=== PATIENT | male | born 1955 | race African-American/Black ===

== ENCOUNTER 2025-03-03 04:04 | Inpatient (IN) | payer MEDICARE, MEDICAID ==
[~2025-03-03] VITALS: Ht 172.7 cm; Wt 78.9 kg
[2025-03-03] VITALS (11 sets, daily range): BP systolic 105–129; BP diastolic 60–77; PULSE 76–86; RESP 12–97; TEMP 97.5–99; O2SAT 95–100
[2025-03-03] MEDS: FUROSEMIDE 40 MG/4 ML VIAL IV ONE ×2 (04:28→11:16)
[2025-03-03] MEDS: FUROSEMIDE 40 MG/4 ML VIAL ONE (04:28)
--- NOTE | 2025-03-03 04:31 | ED.PDOC ---
SOB-HPI HPI Comments 69-year-old male who came to ER due to shortness of breath. Patient transferred from [facility]. Patient history of lung cancer status post lobectomy 2018, status post chemotherapy currently on Krazati, has been having shortness of breath for the past 3 days progressively worsening, with the episodes of wheezing. Denies any fever or chills or acute chest pains. Patient was seen at [facility], diagnostics done, x-ray shows possible multifocal pneumonia with pleural effusion. Patient transferred here for continued management Chief Complaint: Shortness of Breath Time Seen by MD: 04:27 Reviewed notes: Nurses Notes, Monument Carver Notes Information Source: Patient Mode of Arrival: EMS Past Medical History PAST MEDICAL HISTORY: Cancer, High Lipids, HTN Past Medical History (Other): Lung Cancer Surgical History (Other): Lobectomy 2018, chemotherapy Family History Family History: Reviewed,noncontributory to illness Social History Smoker: Non-Smoker Alcohol: Denies ETOH Use Drugs: Denies Drug Use Lives In: Home Constitutional: denies: chills, diaphoresis, fatigue, fever, malaise, sweats, weakness, others EENTM: denies: blurred vision, double vision, ear bleeding, ear discharge, ear drainage, ear pain, ear ringing, eye pain, eye redness, hearing loss, mouth pain, mouth swelling, nasal discharge, nose bleeding, nose congestion, nose pain, photophobia, tearing, throat pain, throat swelling, voice changes, others Respiratory: reports: SOB at rest, shortness of breath, SOB with excertion, wheezing; denies: cough, hemoptysis, orthopnea, stridor, others Cardiovascular: denies: chest pain, dizzy spells, diaphoresis, Dyspnea on exertion, edema, irregular heart beat, left arm pain, lightheadedness, palpitations, PND, syncope, others Gastrointestinal: denies: abdomen distended, abdominal pain, blood streaked bowels, constipated, diarrhea, dysphagia, difficulty swallowing, hematemesis, melena, nausea, poor appetite, poor fluid intake, rectal bleeding, rectal pain, vomiting, others Genitourinary: denies: burning, dysuria, flank pain, frequency, hematuria, incontinence, penile discharge, penile sore, pain, testicle pain, testicle swelling, urgency, others Neurological: denies: dizziness, fainting, headache, left sided numbness, left sided weakness, numbness, paresthesia, pre-existing deficit, right sided numbness, right sided weakness, seizure, speech problems, tingling, tremors, weakness, others Musculoskeletal: denies: back pain, gout, joint pain, joint swelling, muscle pain, muscle stiffness, neck pain, others Integumetry: denies: bruises, change in color, change in hair/nails, dryness, laceration, lesions, lumps, rash, wounds, others Allergic/Immunocompromised: denies: Difficulty Healing, Frequent Infections, H jaylen, Itching, others Hematologic/Lymphatic: denies: anemia, blood clots, easy bleeding, easy bruising, swollen glands, others Endocrine: denies: excessive hunger, excessive sweating, excessive thirst, excessive urination, flushing, intolerance to cold, intolerance to heat, unexplained weight gain, unexplained weight loss, others Psychiatric: denies: anxiety, bipolar disorder, depression, hopeless, panic disorder, schizophrenia, sleepless, suicidal, others Physical Exam General Appearance: No Apparent Distress, Normal HEENT: Normal ENT Inspection, Pharynx Normal, TMs Normal Neck: Full Range of Motion, Non-Tender, Normal, Normal Inspection Respiratory: Chest Non-Tender, Lungs Clear, No Accessory Muscle Use, No Respiratory Distress, Normal Breath Sounds Cardiovascular: No Edema, No JVD, No Murmur, No Gallop, Normal Peripheral Pulses, Regular Rate/Rhythm Breast Exam: Deferred Gastrointestinal: No Organomegaly, Non Tender, No Pulsatile Mass, Normal Bowel Sounds, Soft Genitalia: Deferred Pelvic: Deferred Rectal: Deferred Extremities: No calf tenderness, Normal capillary refill, Normal inspection, Normal range of motion, Non-tender, No pedal edema Musculoskeletal : Apperance: Normal Neurologic: Alert, binder operator II-XII nml as Tested, No Motor Deficits, Normal Affect, Normal Mood, No Sensory Deficits Cerebellar Function: Normal Reflexes: Normal Skin: Dry, Normal Color, Warm Lymphatic: No Adenopathy Was a procedure done? Was a procedure done?: No Differential Dx Differential Diagnosis: CHF, COPD, Myocardial infarction, Respiratory Distress X-Ray, Labs, Meds, VS Vital Signs Date Time Temp Pulse Resp B/P (MAP) Pulse Ox O2 Delivery O2 Flow Rate FiO2 03/03/25 04:31 41 16 30.0 100 11/30/25 04:28 127/70 03/03/25 04:14 98.6 40 20 121/78 95 98.6 03/03/25 04:08 42 03/03/25 04:05 Non-Rebreather 15 N/A 03/03/25 04:05 97.8 42 18 127/70 (89) 96 97.8 Lab Test 03/03/25 04:48 Range/Units White Blood Count 14.0 H 4.4-10.8 10^3/uL Red Blood Count 2.84 L 4.5-5.90 10^6/uL Hemoglobin 8.9 L 13.5-17.5 g/dL Hematocrit 27.8 L 41.0-53.0 % Mean Corpuscular Volume 97.9 80.0-100.0 fL Mean Corpuscular Hemoglobin 31.4 28.0-32.0 pg Mean Corpuscular Hemoglobin Concent 32.1 32.0-36.0 g/dL Red Cell Distribution Width 14.6 H 11.8-14.3 % Platelet Count 135 L 140-450 10^3/uL Mean Platelet Volume 9.9 6.9-10.8 fL Neutrophils (%) (Auto) 89.7 H 37.0-80.0 % Lymphocytes (%) (Auto) 5.5 L 10.0-50.0 % Monocytes (%) (Auto) 4.3 0.0-12.0 % Eosinophils (%) (Auto) 0.0 0.0-7.0 % Basophils (%) (Auto) 0.5 0.0-2.0 % Neutrophils # (Auto) 12.6 H 1.6-8.6 10 ^3/uL Lymphocytes # (Auto) 0.8 0.4-5.4 10 ^3/uL Monocytes # (Auto) 0.6 0-1.3 10 ^3/uL Eosinophils # (Auto) 0 0-0.8 10 ^3/uL Basophils # (Auto) 0.1 0-0.2 10 ^3/uL Nucleated Red Blood Cells 0.2 % Prothrombin Time 12.8 H 9.3-11.8 sec Prothrombin Time INR 1.23 H 0.9-1.15 Activated Partial Thromboplast Time 26.0 24.5-34.5 SEC Sodium Level 138 136-145 mmol/L Potassium Level 5.6 *H 3.5-5.1 mmol/L Chloride Level 107 98-107 mmol/L Carbon Dioxide Level 18 L 20-31 mmol/L Anion Gap 13 5-15 Blood Urea Nitrogen 65 H 9-23 mg/dL Creatinine 7.28 H 0.700-1.30 mg/dL Glomerular Filtration Rate Calc 8 >90 mL/min BUN/Creatinine Ratio 8.9 L 10.0-20.0 Serum Glucose 134 H 74-106 mg/dL Calcium Level 9.8 8.7-10.4 mg/dL Total Bilirubin 0.5 0.2-1.0 mg/dL Aspartate Amino Transferase (AST) 96 H 13-40 U/L Alanine Aminotransferase (ALT) 125 H 7-40 U/L Alkaline Phosphatase 124 H 46-116 U/L Troponin I High Sensitivity 33 </=54 ng/L B-Type Natriuretic Peptide 2265.83 0-100 pg/mL Total Protein 7.3 5.7-8.2 g/dL Albumin 4.5 3.2-4.8 g/dL Current Medications Medications (Trade) Dose Ordered Sig/Peng Route Start Time Stop Time Status Last Admin Furosemide (Lasix Injection) 40 mg ONCE ONCE IV 03/03/25 04:30 03/03/25 04:31 DC 03/03/25 04:28 Time of 1ST Reevaluation: 04:24 Reevaluation 1ST: Unchanged Patient Education/Counseling: Diagnosis, Treatment Family Education/Counseling: No Family Present SEPSIS Sepsis Screen Date sepsis recognized/suspect: Mar 03, 2025 Time Sepsis recognized/suspect: 404 Recent Procedure: No On Antibiotic Therapy: No Respiratory Rate >20: No Heart Rate >90: No Temp<36 C (96.8 F) or >38.3 C: No SBP <90 or MAP <65 mmHG: No New Acute Mental Status Change: No Is the patient on CPAP, BIPAP,: No Physician Orders Oxygen By High-Flow (03/03/25 04:21) Chest Portable (03/03/25 04:22) Electrocardigram (03/03/25 04:22) Troponin-I Hs (03/03/25 05:22) Troponin-I Hs (03/03/25 07:22) Vital Signs Date Time Temp Pulse Resp B/P (MAP) Pulse Ox O2 Delivery O2 Flow Rate FiO2 03/03/25 04:31 41 16 30.0 100 03/03/25 04:28 127/70 03/03/25 04:14 98.6 40 20 121/78 95 98.6 03/03/25 04:08 42 03/03/25 04:05 Non-Rebreather 15 N/A 03/03/25 04:05 97.8 42 18 127/70 (89) 96 97.8 Laboratory Tests Test 03/03/25 04:48 White Blood Count 14.0 10^3/uL (4.4-10.8) H Medications Medications Dose Ordered Sig/Peng Route Start Time Stop Time Status Last Admin Dose Admin Furosemide 40 mg ONCE ONCE IV 03/03/25 04:30 03/03/25 04:31 DC 03/03/25 04:28 Departure 1 Departure Time of Disposition: 05:43 Impression: Primary Impression: Acute renal failure Additional Impressions: Hyperkalemia Fluid overload Disposition: ADMITTED INPATIENT Admit to: Tele Condition: Guarded Comments 69-year-old male transferred from outside hospital for respiratory failure with hypoxia. On lab review he has acute renal failure with BUN of 65 and creatinine of 7.28. He has hyperkalemia 5.6. His white blood cell count is bit elevated at 14. He is anemic likely anemia of chronic disease with H&H of 9 and 28. Patient was given Lasix and Lokelma and will need to be admitted for supportive care and further workup Critical Care Note Critical Care Time?: Yes (35 min-critical care time only) Stability Stability form required: No Heart Score Heart Score: Heart Score Response (Comments) Value History Moderate Suspicious 1 EKG Repolarization Disturb 1 Age >65 2 Risk Factors >3 or Hx ASHD 2 Troponin Normal limit 0 Total 6 I personally scribed for YONATHAN ANN MD ([email or web address]) on 03/03/25 at 04:31. Electronically submitted by Johnny Brower ([email or web address]). YONATHAN ANN MD Mar 03, 2025 04:31
[2025-03-03 05:01] LABS: Hematocrit 27.8 % (41.0-53.0); Hemoglobin 8.9 g/dL (13.5-17.5); Mean Corpuscular Hemoglobin 31.4 pg (28.0-32.0); Mean Corpuscular Volume 97.9 fL (80.0-100.0); Nucleated Red Blood Cells % 0.2 %
[2025-03-03 05:16] LABS: INR 1.23 (0.9-1.15); Partial Thromboplastin Time 26.0 SEC (24.5-34.5); Prothrombin Time 12.8 sec (9.3-11.8)
[2025-03-03 05:29] LABS: Albumin 4.5 g/dL (3.2-4.8); Anion Gap 13 (5-15); BUN/Creatinine Ratio 8.9 (10.0-20.0); Bilirubin, Total 0.5 mg/dL (0.2-1.0); Calcium 9.8 mg/dL (8.7-10.4); Chloride 107 mmol/L (98-107); Sodium 138 mmol/L (136-145); Total Protein 7.3 g/dL (5.7-8.2)
[2025-03-03 05:35] LABS: Alanine Aminotransferase 125 U/L (7-40); Alkaline Phosphatase 124 U/L (46-116); Blood Urea Nitrogen 65 mg/dL (9-23); Carbon Dioxide 18 mmol/L (20-31); Glucose 134 mg/dL (74-106)
--- NOTE | 2025-03-03 05:35 | DVH ---
CHEST RADIOGRAPH Indication: SOB Technique: Single frontal view of the chest was obtained Comparison: XR CHEST 1 VIEW on DOS: 03/02/25, XR CHEST 1 VIEW on DOS: 09/13/23, XR CHEST 1 VIEW on DOS: 03/07/23 IMPRESSION: Heart is enlarged. Bilateral airspace opacities in the left lung base, right middle and lower lung. Small right pleural effusion. No pneumothorax.
[2025-03-03 05:38] LABS: Potassium 5.6 mmol/L (3.5-5.1)
[2025-03-03] MEDS: SODIUM ZIRCONIUM CYCL 10 GM PAK PO ONE ×2 (06:19→19:35)
--- NOTE | 2025-03-03 07:07 | ECG ---
[facility] Test Date: 2025-03-03 Test Time: 04:08:18 Pat Name: DESTINI LINO Department: ED Room: 0249T Gender: M Millwright Helper: ABHIJEET : 1955 Requested By: YONATHAN ANN Order Number: [id number] Reading MD: Rosendo Prado Measurements Intervals Christiana Rate: 42 P: 0 NE: 0 QRS: 40 QRSD: 164 T: 43 QT: 455 QTc: 381 Interpretive Statements Junctional rhythm Nonspecific intraventricular conduction delay Electronically Signed On 03-05-2025 15:01:38 PST by Rosendo Prado Please click the below link to view image of tracing.
[2025-03-03] MEDS ORDERED: NITROGLYCERIN 0.4 MG SL TAB SL PRN (08:15)
[2025-03-03] MEDS ORDERED: ONDANSETRON HCL 4 MG/2 ML VIAL IV PRN (08:15)
[2025-03-03] MEDS ORDERED: VANCOMYCIN PER PHARMACY 0 MG IV SCH (08:15)
[2025-03-03] MEDS ORDERED: MORPHINE SULFATE INJ 2 MG/ml SYRG IV PRN (08:15)
[2025-03-03] MEDS: ALBUTEROL SULF 2.5 MG/0.5ML(0.5%) NEB SOLN NEB ONE (08:39)
[2025-03-03] MEDS: ALBUTEROL SULF 2.5 MG/0.5ML(0.5%) NEB SOLN ONE (08:53)
--- NOTE | 2025-03-03 09:16 | DVHHPRES ---
History of Present Illness Resident Creating Document: SCOTT MIRAMONTESLANDON RESIDENT History of Present Illness Patient is a 69-year-old male with who was transferred from [facility] with a chief complaint of worsening shortness of breath. Patient reported he started to have shortness of breath 3-4 days ago and was apparently well until that time. Patient has a significant medical history of lung cancer status post right lower lobectomy in 2018, on chemotherapy, ESRD status post chemotherapy was on dialysis until 6 months ago with the [facility] dialysis. Patient reported of started to have shortness of breath about 3-4 days ago, gradually worsening, orthopnea, associated with a cough and phlegm initially whitish then yellowish to dark brown/red. He denied any fevers, chills, headache, dysuria, chest pain. He denies any diagnosis of COPD, no oxygen use at home. While at [facility] patient underwent CT angio chest which did not show any evidence of pulmonary embolism, patchy airspace disease seen in the right middle lobe, left lower lobe, loculated small right pleural effusion. Patient was initially on nasal cannula with continued hypoxia following which he was put on non-rebreather mask and eventually on high-flow nasal cannula. Patient will be admitted to the hospital for further evaluation Medical history: lung cancer status post right lower lobectomy in 2018, on chemotherapy, ESRD status post chemotherapy was on dialysis until 6 months ago with the [facility] dialysis Surgical history: Right lower lobe lobectomy Social history: Patient lives with the his fiancee and denies any smoking, alcohol, drug use Home medications: Atenolol 25 mg daily, tamsulosin 0.4 mg daily, Krazati ( adagrasib ), lisinopril/hydrochlorothiazide, allopurinol, amlodipine, atorvastatin Review of Systems Review of Systems Patient seen and examined with the bedside currently on high-flow nasal cannula, no shortness of breath while on HLNC Denies any fever, chills, nausea, vomiting, headache, chest pain Patient is slightly confused but is A&O x3 Allergies: Coded Allergies: No Known Drug Allergy (Verified Allergy, Unknown, 03/03/25) Medications Current Medications Medications Dose Ordered Sig/Peng Route Start Time Stop Time Status Last Admin Dose Admin Nitroglycerin 0.4 mg Q5MINP PRN SL 03/03/25 08:15 Morphine Sulfate 2 mg Q30M PRN IV 03/03/25 08:15 Vancomycin HCl 0 ml @ 0 mls/hr PER PHARMACY IV 03/03/25 08:15 UNV Ceftriaxone Sodium 50 ml @ 100 mls/hr DAILY@09 IV 03/03/25 09:00 Azithromycin 250 ml @ 125 mls/hr DAILY IV 03/03/25 10:00 Ondansetron HCl 4 mg Q6HPRN PRN IV 03/03/25 08:15 Pantoprazole Sodium 40 mg DAILY IV 03/03/25 10:00 Exam Vital Signs Vital Signs Date Time Temp Pulse Resp B/P (MAP) Pulse Ox O2 Delivery O2 Flow Rate FiO2 03/03/25 08:40 14 100 Hi-Flow Heated NC+ 30 90 90 03/03/25 08:04 98.8 79 129/67 (87) 98.8 Exam Skin - Patients skin is warm and dry. HEENT - normocephalic, atraumatic, moist mucous membranes, no conjunctival pallor, no scleral icterus Neck - full ROM, no LAD, jugular venous pulsation elevated with a positive hepatojugular reflux Pulmonary - B/L decreased breath sounds in the right middle to lower with the inspiratory crackles in the bilateral bases, no wheezing cardiovascular - regular S1,S2 heard, no added sounds, no murmurs heard. capillary refill normal <3 secs. GI - soft, nontender abdomen. Bowel sounds normoactive Neurological - Patient is A/O X 3 . Bilateral upper extremity strength 5/5, bilateral lower extremity strength 5/5, no facial droop, normal speech, no tremor, no sensory deficiets. Labs/Xrays Labs Test 03/03/25 05:45 03/03/25 04:48 Range/Units Troponin I High Sensitivity 31 </=54 ng/L White Blood Count 14.0 H 4.4-10.8 10^3/uL Red Blood Count 2.84 L 4.5-5.90 10^6/uL Hemoglobin 8.9 L 13.5-17.5 g/dL Hematocrit 27.8 L 41.0-53.0 % Mean Corpuscular Volume 97.9 80.0-100.0 fL Mean Corpuscular Hemoglobin 31.4 28.0-32.0 pg Mean Corpuscular Hemoglobin Concent 32.1 32.0-36.0 g/dL Red Cell Distribution Width 14.6 H 11.8-14.3 % Platelet Count 135 L 140-450 10^3/uL Mean Platelet Volume 9.9 6.9-10.8 fL Neutrophils (%) (Auto) 89.7 H 37.0-80.0 % Lymphocytes (%) (Auto) 5.5 L 10.0-50.0 % Monocytes (%) (Auto) 4.3 0.0-12.0 % Eosinophils (%) (Auto) 0.0 0.0-7.0 % Basophils (%) (Auto) 0.5 0.0-2.0 % Neutrophils # (Auto) 12.6 H 1.6-8.6 10 ^3/uL Lymphocytes # (Auto) 0.8 0.4-5.4 10 ^3/uL Monocytes # (Auto) 0.6 0-1.3 10 ^3/uL Eosinophils # (Auto) 0 0-0.8 10 ^3/uL Basophils # (Auto) 0.1 0-0.2 10 ^3/uL Nucleated Red Blood Cells 0.2 % Prothrombin Time 12.8 H 9.3-11.8 sec Prothrombin Time INR 1.23 H 0.9-1.15 Activated Partial Thromboplast Time 26.0 24.5-34.5 SEC Sodium Level 138 136-145 mmol/L Potassium Level 5.6 *H 3.5-5.1 mmol/L Chloride Level 107 98-107 mmol/L Carbon Dioxide Level 18 L 20-31 mmol/L Anion Gap 13 5-15 Blood Urea Nitrogen 65 H 9-23 mg/dL Creatinine 7.28 H 0.700-1.30 mg/dL Glomerular Filtration Rate Calc 8 >90 mL/min BUN/Creatinine Ratio 8.9 L 10.0-20.0 Serum Glucose 134 H 74-106 mg/dL Calcium Level 9.8 8.7-10.4 mg/dL Total Bilirubin 0.5 0.2-1.0 mg/dL Aspartate Amino Transferase (AST) 96 H 13-40 U/L Alanine Aminotransferase (ALT) 125 H 7-40 U/L Alkaline Phosphatase 124 H 46-116 U/L B-Type Natriuretic Peptide 2265.83 0-100 pg/mL Total Protein 7.3 5.7-8.2 g/dL Albumin 4.5 3.2-4.8 g/dL SEPSIS Sepsis Screen Date sepsis recognized/suspect: Mar 03, 2025 Time Sepsis recognized/suspect: 422 Recent Procedure: No On Antibiotic Therapy: No Respiratory Rate >20: No Heart Rate >90: No Temp<36 C (96.8 F) or >38.3 C: No SBP <90 or MAP <65 mmHG: No New Acute Mental Status Change: No Is the patient on CPAP, BIPAP,: No Physician Orders Oxygen By High-Flow (03/03/25 04:21) Chest Portable (03/03/25 04:22) Troponin-I Hs (03/03/25 07:22) Admit (03/03/25 08:14) Nitroglycerin Sublingual (Ntrostat Subli (03/03/25 08:15) Morphine Sulfate Injection (03/03/25 08:15) Oxygen By Nasal Cannula (03/03/25 08:14) Stat Ekg For Chest Pain (03/03/25 08:14) Notify Md Of Changes From Base (03/03/25 08:14) Pneumatic Tube Repairer For 24 Hours (03/03/25 08:14) Emergency Dysrhythmia Protocol (03/03/25 08:14) Rhythm Strips Once Every Shift (03/03/25 08:14) Abg W/ Co-Ox (03/03/25 08:14) Rapid Influenza A&B (03/03/25 08:14) Covid19 Antigen Deborah (03/03/25 ) Mrsa Screen (03/03/25 08:14) Blood Culture (03/03/25 08:14) Respiratory Culture W/ Gs (03/03/25 08:14) Lactic Acid W/ Reflex Order (03/03/25 08:14) Vancomycin Per Pharmacy (03/03/25 08:15) Ceftriaxone 1gm/50ml (Rocephin) (03/03/25 09:00) Azithromycin 500mg/250ml (Zithromax 500m (03/03/25 10:00) Urinalysis (03/03/25 08:14) Ondansetron Hcl (Zofran) (03/03/25 08:15) *Dr. Saba Ramsey -Da Mary (03/03/25 08:14) * Swallow Request (03/03/25 08:14) Furosemide Injection (Lasix Injection) (03/03/25 11:00) Pantoprazole (Protonix) (03/03/25 10:00) Complete Blood Count (03/04/25 04:00) Comprehensive Metabolic Panel (03/04/25 04:00) Thyroid Stimulating Hormone (03/03/25 08:14) Vancomycin 1.75gm/350ml (03/03/25 08:45) Vital Signs Date Time Temp Pulse Resp B/P (MAP) Pulse Ox O2 Delivery O2 Flow Rate FiO2 03/03/25 08:40 14 100 Hi-Flow Heated NC+ 30 90 90 03/03/25 08:04 98.8 79 16 129/67 (87) 100 98.8 03/03/25 07:10 76 14 100 Hi-Flow Heated NC+ 30 32 32 03/03/25 07:01 83 21 99 30.0 90 03/03/25 06:45 99 Nasal Cannula 30.0 03/03/25 06:45 99 Hi-Flow Heated NC+ 30 90 90 03/03/25 06:00 75 19 129/66 (87) 100 03/03/25 04:31 41 16 30.0 100 03/03/25 04:28 127/70 03/03/25 04:14 98.6 40 20 121/78 95 98.6 03/03/25 04:08 42 03/03/25 04:05 Non-Rebreather 15 N/A 03/03/25 04:05 97.8 42 18 127/70 (89) 96 97.8 Laboratory Tests Test 03/03/25 04:48 White Blood Count 14.0 10^3/uL (4.4-10.8) H Medications Medications Dose Ordered Sig/Peng Route Start Time Stop Time Status Last Admin Dose Admin Albuterol 20 mg ONCE ONCE NEB 03/03/25 08:15 03/03/25 08:34 DC 03/03/25 08:39 20 MG Furosemide 40 mg ONCE ONCE IV 03/03/25 04:30 03/03/25 04:31 DC 03/03/25 04:28 40 MG Zirconium Oxide 10 gm ONCE ONCE PO 03/03/25 06:15 03/03/25 06:16 DC 03/03/25 06:19 10 GM Assessment/Plan Assessment/Plan Acute hypoxic respiratory failure likely due to pneumonia Multifocal pneumonia likely due to Gram +/-bacteria Sepsis likely due to pneumonia ?Hemoptysis h/o lung cancer status post right lower lobectomy Pulmonary edema likely from acute renal failure PE ruled out ( CT angio at [facility] negative for PE) - IV antibiotics vancomycin plus ceftriaxone plus azithromycin - judicious use of IV fluids since the patient has a acute renal failure - duo nebs q.8 hours with the Mucomyst - sputum cultures pending - blood cultures pending Acute renal failure RODY on CKD likely due to VMN h/o ESRD ( s/p chemo) on dialysis until 6 months ago Hyperkalemia - nephrology consult - hyperkalemia protocol given, monitor electrolytes and kidney function - IV diuretics - strict I and O PUD prophylaxis: Protonix DVT prophylaxis: Held as the patient reported of hemoptysis, low hemoglobin Goals of care discussed with the patient and his mumtaz Mix over phone for over 19 minutes. Full code Critical care time spent: 51 minutes Plan discussed with Dr. Babcock Plan discussed with: Patient, Other (RN) My Orders Orders - CURLY MIRAMONTES RESIDENT Procedure Category Date Status Time Admit ADMIT 03/03/25 Transmitted 08:14 Nitroglycerin PHA 03/03/25 In Process Sublingual (Ntrostat 08:15 Morphine Sulfate PHA 03/03/25 In Process Injection 08:15 Oxygen By Nasal RT 03/03/25 Transmitted Cannula 08:14 Stat Ekg For Chest [facility] 03/03/25 In Process Pain 08:14 Notify Of Changes [facility] 03/03/25 In Process From Base 08:14 Pneumatic Tube Repairer For [facility] 03/03/25 In Process 24 Hours 08:14 Emergency Dysrhythmia [facility] 03/03/25 In Process Protocol 08:14 Rhythm Strips Once [facility] 03/03/25 In Process Every Shift 08:14 Abg W/ Co-Ox RT 03/03/25 Logged 08:14 Rapid Influenza A&B LAB 03/03/25 Logged 08:14 Covid19 Antigen Deborah LAB 03/03/25 Logged Mrsa Screen JONO 03/03/25 Logged 08:14 Blood Culture JONO 03/03/25 Logged 08:14 Respiratory Culture JONO 03/03/25 Logged W/ Gs 08:14 Lactic Acid W/ Reflex LAB 03/03/25 Logged Order 08:14 Vancomycin Per PHA 03/03/25 Pending Pharmacy 08:15 Ceftriaxone 1gm/50ml PHA 03/03/25 In Process (Rocephin) 09:00 Azithromycin PHA 03/03/25 In Process 500mg/250ml 10:00 Urinalysis LAB 03/03/25 Logged 08:14 Ondansetron Hcl PHA 03/03/25 In Process (Zofran) 08:15 *Dr. Saba Ramsey -Da CONS 03/03/25 Transmitted Mary 08:14 * Swallow Request ST 03/03/25 Transmitted 08:14 Furosemide Injection PHA 03/03/25 In Process (Lasix Injection) 11:00 Pantoprazole PHA 03/03/25 In Process (Protonix) 10:00 Complete Blood Count LAB 03/04/25 Verified 04:00 Comprehensive LAB 03/04/25 Verified Metabolic Panel 04:00 Thyroid Stimulating LAB 03/03/25 In Process Hormone 08:14 Vancomycin PHA 03/03/25 In Process 1.75gm/350ml 08:45 Date of Service: Mar 03, 2025 Billing Provider: ALBERTA BABCOCK MD Common Visit Codes: [id number] CARE 30-74 MIN CURLY MIRAMONTES RESIDENT Mar 03, 2025 09:16 ALBERTA BABCOCK MD Mar 03, 2025 23:15
[2025-03-03] MEDS ORDERED: DEXTROSE (50%) 50ML SYRG IV PRN (09:30)
[2025-03-03] MEDS: InsuLIN REG 1unit/0.01ml Soln (100units/ml) IV ONE (09:44)
[2025-03-03] MEDS: VANCOMYCIN 1.75GM/350ML 350 ML IV ONE (09:46)
[2025-03-03] MEDS: DEXTROSE (50%) 50ML SYRG IV ONE (09:46)
[2025-03-03 09:55] LABS: Base Excess -5.8 mmol/L (-2.0-3.0)
[2025-03-03] MEDS: PANTOPRAZOLE 40 MG/10 ML VIAL INJ IV SCH (10:05)
[2025-03-03 11:03] LABS: COVID19 ANTIGEN SOFIA FIA NEGATIVE (NEGATIVE)
[2025-03-03] MEDS ORDERED: ACCU-CHEK COMFORT CURVE STRIP VI SCH (12:00)
--- NOTE | 2025-03-03 13:48 | DVHSR ---
APPROVED REPORT EXAM: Two-dimensional and M-mode echocardiogram with Doppler and color Doppler. Blood Pressure: 129/67 mmHg INDICATION SOB H/O Lung CA S/P Chemo CKD/ESRD RISK FACTORS Height: 5' 8", Weight: 178 DIMENSIONS LVDd 4.9 (3.8-5.7cm) LA (2D) 4.5 (1.9-4.0cm) Aortic Root 3.2 (2.0-3.7cm) LVDs 3.5 (2.5-4.0cm) LA (MM) (1.9-4.0cm) Aortic Cusp Exc 2.2 (1.5-2.0cm) EF (%) 55.1 (55-70%) Rt. Atrium 4.5 (1.9-4.0cm) Asc. Aorta cm IVSd 1.0 (0.7-1.1cm) RV (D) (1.8-2.4cm) PWd 1.2 (0.7-1.1cm) Mitral Valve Mitral Mitral Stenosis E wave 1.00m/s MV Mean GR. mmHg A wave 0.90m/s MV Peak GR. mmHg E/A ratio 1.1 2D MVA cm2 Aortic Valve Aortic Valve Aortic Stenosis V1 1.10m/s AO Mean GR. 6mmHg V2 1.80m/s AO Peak GR. 14mmHg LVOT Diameter 2.4 (1.8-2.4cm) Doppler ADRINAE 2.76cm2 Pulmonic Valve V2 0.80m/s Tricuspid Valve TR Velocity 3.20m/s RVSP 50mmHg Conclusion lvef 65% mild LVH no severe valve abnomrality noted
--- NOTE | 2025-03-03 13:51 | DVHINCON2 ---
Date of service: Mar 03, [address] Harris. Reason for Consultation Acute kidney injury History of Present Illness 69-year-old patient with significant history of lung cancer status post chemotherapy currently on adagrasib, previous RODY dialysis dependent recovery about six months ago at [facility], hypertension, gout, BPH who is accompanied by his here at bedside. The patient states that for the last four days he has had gradual and worsening shortness of breath on exertion associated with orthopnea PND but no leg swelling no difficulty with urination, no fevers no chills, no new medications, and the cough is productive of mostly whitish sputum with slight yellow tinge to. He presented 1st to [facility] with a CT angio was done showing negative for pulmonary embolism, patchy infiltrate multifocal with a loculated small right-sided pleural effusion. Patient has been hypoxic on non-rebreather 1st currently on high-flow nasal cannula and he was initially hyperkalemic of 5.6 which responded well to Lokelma now 5.1. Laboratory data revealed hyperkalemia 5.6 now 5.1. Chest x-ray showed pulmonary edema Past Medical History RODY dialysis dependent Hypertension Lung cancer Past Surgical History Lobectomy in 2018 Allergies: Coded Allergies: No Known Drug Allergy (Verified Allergy, Unknown, 03/03/25) Current Medications Current Medications Medications (Trade) Dose Ordered Sig/Peng Route PRN Reason Start Time Stop Time Status Last Admin Nitroglycerin (Ntrostat Sublingual) 0.4 mg Q5MINP PRN SL FOR CHEST PAIN 03/03/25 08:15 Morphine Sulfate 2 mg Q30M PRN IV FOR CHEST PAIN 03/03/25 08:15 Vancomycin HCl 0 ml @ 0 mls/hr PER PHARMACY IV 03/03/25 08:15 Ceftriaxone Sodium 50 ml @ 100 mls/hr DAILY@09 IV 03/03/25 09:00 03/03/25 09:41 Azithromycin 250 ml @ 125 mls/hr DAILY IV 03/03/25 10:00 Ondansetron HCl (Zofran) 4 mg Q6HPRN PRN IV NAUSEA / VOMITING 03/03/25 08:15 Pantoprazole Sodium (Protonix) 40 mg DAILY IV 03/03/25 10:00 03/03/25 10:05 Albuterol (Ventolin Medneb) 2.5 mg Q8HR NEB 03/03/25 14:00 Ipratropium [place] (Atrovent Medneb) 0.5 mg Q8HR NEB 03/03/25 14:00 Acetylcysteine (Mucomyst Inhalation 20%) 200 mg Q8HR NEB 03/03/25 14:00 Diagnostic Test (Pha) (Accu-Chek Comfort Curve T) 1 strip Q6HR 03/03/25 12:00 03/03/25 09:41 DC Dextrose 50 ml UD PRN IV Blood Sugar LESS THAN 60 03/03/25 09:30 03/03/25 09:41 DC Furosemide (Lasix Injection) 80 mg BIDD IV 03/03/25 18:00 UNV Social History He denies smoking alcohol or drug abuse Review of Systems HEENT: Oral mucosa dry Neck no JVD Cardiovascular: Denies for chest pain denies orthopnea or PND Respiratory: Positive for cough or shortness of breath Gastrointestinal: Denies for nausea vomiting Musculoskeletal: Denies myalgias Neurological: Denies focal weakness Dermatological: Denies any rash The rest of the review of systems were reviewed pertinent positives and pertinent negatives are as per HPI up to 12 points review of systems H&P Exam Vital Signs/I&O Vital Sign Date Time Temp Pulse Resp B/P (MAP) Pulse Ox O2 Delivery O2 Flow Rate FiO2 03/03/25 11:22 80 16 120/60 (80) 100 03/03/25 08:40 Hi-Flow Heated NC+ 30 90 90 03/03/25 08:04 98.8 98.8 Physical Exam HEENT: No evidence of JVD, no oral ulcers. Pulmonary: Crackles on auscultation bilaterally Cardiovascular S1-S2, no S3 or S4 Abdomen: Bowel sounds positive, soft no rebound tenderness Skin: No rash Neurological: Alert, oriented, no focal weakness Labs/Diagnostic Data Labs/Diagnostic Data Laboratory Tests Test 03/03/25 11:29 03/03/25 09:09 03/03/25 08:56 03/03/25 08:49 Range/Units Potassium Level 5.1 3.5-5.1 mmol/L Blood Gas Specimen Type Arterial Blood Gas Sample Site Right radial Blood Gas Patient Temperature 37.0 Arterial Blood Date Drawn [id number] Arterial Blood pH 7.379 7.350-7.450 Arterial Blood Partial Pressure CO2 31.8 L 35.0-48.0 mmHg Arterial Blood Partial Pressure O2 184.1 H 83.0-108.0 mmHg Arterial Blood HCO3 18.3 L 21.0-28.0 mmol/L Arterial Blood Oxygen Saturation 99.0 H 94.0-98.0 % Arterial Blood Base Excess -5.8 L -2.0-3.0 mmol/L Arterial Blood Oxyhemoglobin 98.3 H 94.0-98.0 % Arterial Blood Carboxyhemoglobin 0.2 L 0.5-1.5 % Arterial Blood Methemoglobin 0.5 0.0-1.5 % Arterial Blood Deoxyhemoglobin 1.0 0.0-5.0 % Mahesh Test Modified Blood Gas Total Hemoglobin 11.70 L 13.5-17.5 g/dL Blood Gas Liter Flow 30.00 Blood Gas Modality High flow FiO2 % 90.0 POC Glucose 169 H 70-106 mg/dl Troponin I High Sensitivity 31 </=54 ng/L Test 03/03/25 08:44 03/03/25 05:45 03/03/25 04:48 03/03/25 04:13 Range/Units Lactic Acid Level 1.0 0.4-2.0 mmol/L Troponin I High Sensitivity 31 33 </=54 ng/L Thyroid Stimulating Hormone (TSH) 1.81 0.55-4.78 uIU/mL White Blood Count 14.0 H 4.4-10.8 10^3/uL Red Blood Count 2.84 L 4.5-5.90 10^6/uL Hemoglobin 8.9 L 13.5-17.5 g/dL Hematocrit 27.8 L 41.0-53.0 % Mean Corpuscular Volume 97.9 80.0-100.0 fL Mean Corpuscular Hemoglobin 31.4 28.0-32.0 pg Mean Corpuscular Hemoglobin Concent 32.1 32.0-36.0 g/dL Red Cell Distribution Width 14.6 H 11.8-14.3 % Platelet Count 135 L 140-450 10^3/uL Mean Platelet Volume 9.9 6.9-10.8 fL Neutrophils (%) (Auto) 89.7 H 37.0-80.0 % Lymphocytes (%) (Auto) 5.5 L 10.0-50.0 % Monocytes (%) (Auto) 4.3 0.0-12.0 % Eosinophils (%) (Auto) 0.0 0.0-7.0 % Basophils (%) (Auto) 0.5 0.0-2.0 % Neutrophils # (Auto) 12.6 H 1.6-8.6 10 ^3/uL Lymphocytes # (Auto) 0.8 0.4-5.4 10 ^3/uL Monocytes # (Auto) 0.6 0-1.3 10 ^3/uL Eosinophils # (Auto) 0 0-0.8 10 ^3/uL Basophils # (Auto) 0.1 0-0.2 10 ^3/uL Nucleated Red Blood Cells 0.2 % Prothrombin Time 12.8 H 9.3-11.8 sec Prothrombin Time INR 1.23 H 0.9-1.15 Activated Partial Thromboplast Time 26.0 24.5-34.5 SEC Sodium Level 138 136-145 mmol/L Potassium Level 5.6 *H 3.5-5.1 mmol/L Chloride Level 107 98-107 mmol/L Carbon Dioxide Level 18 L 20-31 mmol/L Anion Gap 13 5-15 Blood Urea Nitrogen 65 H 9-23 mg/dL Creatinine 7.28 H 0.700-1.30 mg/dL Glomerular Filtration Rate Calc 8 >90 mL/min BUN/Creatinine Ratio 8.9 L 10.0-20.0 Serum Glucose 134 H 74-106 mg/dL Calcium Level 9.8 8.7-10.4 mg/dL Total Bilirubin 0.5 0.2-1.0 mg/dL Aspartate Amino Transferase (AST) 96 H 13-40 U/L Alanine Aminotransferase (ALT) 125 H 7-40 U/L Alkaline Phosphatase 124 H 46-116 U/L B-Type Natriuretic Peptide 2265.83 0-100 pg/mL Total Protein 7.3 5.7-8.2 g/dL Albumin 4.5 3.2-4.8 g/dL Reticulocyte Count (auto) 2.18 H 0.5-1.5 % Test 03/03/25 00:00 Range/Units Influenza Type A Antigen Negative Negative Influenza Type B Antigen Negative Negative SARS-CoV-2 Antigen (Rapid) Negative NEGATIVE Chest x-ray with pulmonary edema Assessment Assessment: 1. Acute kidney injury 2. Hyperkalemia 3. Pulmonary edema 4. Pneumonia 5. Acidemia 6. Lung cancer 7. Hypertension Plan: Continue Lokelsc, we will give extra dose now Lasix IV 80 mg b.i.d. HD after dialysis catheter placed Tunneled catheter placement, high risk case manager to arrange for chair time Monitor urinary output Antibiotics as per primary team Sodium bicarb p.o. Renal ultrasound to be obtained Plan of care from Nephrology perspective discussed with the patient and who agrees. Plan discussed with: Patient, Spouse SIMIN MICHELLE MD Mar 03, 2025 13:51
[2025-03-03] MEDS: IPRATROPIUM BROM 0.5 MG/2.5ML INH SOL NEB SCH (14:14)
[2025-03-03] MEDS: ALBUTEROL SULF 2.5 MG/0.5ML(0.5%) NEB SOLN NEB SCH (14:14)
[2025-03-03] MEDS: ACETYLCYSTEINE 20%(200MG/ML) SOL 4ML NEB SCH (14:14)
[2025-03-03] MEDS: AZITHROMYCIN 500MG/250ML 250 ML IV SCH (14:16)
--- NOTE | 2025-03-03 14:42 | DVH ---
INDICATION: RODY TECHNIQUE: Multiple real-time sonographic images of the kidneys and bladder were obtained. COMPARISON: None FINDINGS: The right kidney measures 9.7 cm in length, which is normal in size. There is normal echogenicity of the right kidney. No hydronephrosis. The left kidney measures 8.5 cm in length, which is normal in size. There is normal echogenicity of the left kidney. No hydronephrosis. No large intraluminal masses are seen in the bladder. Prior to voiding the bladder volume measures volume 1306 cc. Wall of the bladder measures 2.1 mm Postvoid bladder volume not received Prostate measures 5.93 by 3.04 x 5.23 cm. Prostatic volume is 49.41 mL. IMPRESSION: 1. Normal sonographic appearance of the kidneys. No hydronephrosis. 2. Postvoid bladder volume not received 3. Prostate volume 49.41 mL
[2025-03-03 18:00] LABS: Urine Protein, UAD Negative (Negative)
[2025-03-03] MEDS: FUROSEMIDE 100 MG/10ML VIAL IV SCH (18:00)
[2025-03-04] VITALS (21 sets, daily range): BP systolic 108–137; BP diastolic 64–83; PULSE 51–86; RESP 9–96; TEMP 98–99; O2SAT 94–100
[2025-03-04] MEDS: ONDANSETRON HCL 4 MG/2 ML VIAL IV PRN (02:35)
[2025-03-04 05:27] LABS: Hemoglobin 8.3 g/dL (13.5-17.5)
[2025-03-04 05:29] LABS: Hematocrit 24.9 % (41.0-53.0); Mean Corpuscular Hemoglobin 32.4 pg (28.0-32.0); Mean Corpuscular Volume 97.6 fL (80.0-100.0); Nucleated Red Blood Cells % 0.3 %
[2025-03-04 05:49] LABS: Albumin 4.0 g/dL (3.2-4.8); Alkaline Phosphatase 109 U/L (46-116); Anion Gap 14 (5-15); BUN/Creatinine Ratio 10.9 (10.0-20.0); Bilirubin, Total 0.5 mg/dL (0.2-1.0); Calcium 9.4 mg/dL (8.7-10.4); Chloride 103 mmol/L (98-107); Sodium 137 mmol/L (136-145); Total Protein 6.6 g/dL (5.7-8.2)
[2025-03-04 05:51] LABS: Alanine Aminotransferase 107 U/L (7-40); Carbon Dioxide 20 mmol/L (20-31); Glucose 151 mg/dL (74-106); Potassium 5.3 mmol/L (3.5-5.1)
[2025-03-04 05:52] LABS: Blood Urea Nitrogen 80 mg/dL (9-23)
--- NOTE | 2025-03-04 08:30 | DVH ---
EXAM: XY CHEST XRAY 1 VIEW HISTORY: SOB COMPARISON: XY CHEST PORTABLE on DOS: 03/03/25, XR CHEST 1 VIEW on DOS: 03/02/25, XR CHEST 1 VIEW on DOS: 09/13/23, XR CHEST 1 VIEW on DOS: 03/07/23, XR CHEST 1 VIEW on DOS: 03/07/23. For reasons unknown, CT scan of the chest dated 03/03/2025 was not made available on the PACS system for viewing. TECHNIQUE: Portable AP view of the chest was performed. FINDINGS: There are patchy opacities in the bilateral lung bases, improved on both sides compared with chest x-ray performed on 03/03/2025. There may be a small right pleural effusion. No pneumothorax. The heart is not enlarged. There are Multiple old right rib fractures. IMPRESSION: Improved bibasilar pneumonia.
[2025-03-04] MEDS: HEPARIN SODIUM (PORCINE) 5000 UNITS/ML 1ML VIAL ONE (11:40)
[2025-03-04] MEDS: BUPIVACAINE HCL 0.25% P/F 10 ML VIAL ONE (11:40)
[2025-03-04 11:50] LABS: Hepatitis B Surface Antigen Negative (Negative)
[2025-03-04] MEDS: HEPARIN 1,000 UNITS/ml 1ML VIAL ONE (11:54)
[2025-03-04 12:18] LABS: Hepatitis C Antibody Negative (Negative)
[2025-03-04] MEDS ORDERED: GLYCOPYRROLATE 0.2 MG/ML 1ML VIAL ONE (12:22)
[2025-03-04] MEDS ORDERED: KETAMINE 50mg/ML 1ml syringe ONE (12:22)
[2025-03-04] MEDS ORDERED: PROPOFOL 10 MG/ML 20 ML IV ONE (12:22)
[2025-03-04] MEDS ORDERED: MIDAZOLAM HCL 2MG/2ML 2ml VIAL (1mg/ml) ONE (12:22)
[2025-03-04] MEDS ORDERED: ONDANSETRON HCL 4 MG/2 ML VIAL ONE (12:22)
--- NOTE | 2025-03-04 12:30 | DVHINCON2 ---
Date of service: Mar 04, 2025 Family History: Patient reports no known family medical history. Allergies: Coded Allergies: No Known Drug Allergy (Verified Allergy, Unknown, 03/03/25) Current Medications Current Medications Medications (Trade) Dose Ordered Sig/Peng Route PRN Reason Start Time Stop Time Status Last Admin Albuterol (Ventolin Medneb) 2.5 mg Q8HR NEB 03/03/25 14:00 03/04/25 05:54 Ipratropium [place] (Atrovent Medneb) 0.5 mg Q8HR NEB 03/03/25 14:00 03/04/25 05:55 Acetylcysteine (Mucomyst Inhalation 20%) 200 mg Q8HR NEB 03/03/25 14:00 03/04/25 05:55 Furosemide (Lasix Injection) 80 mg BIDD IV 03/03/25 18:00 03/04/25 07:37 Ondansetron HCl (Zofran) 4 mg Q6HPRN PRN IV NAUSEA / VOMITING 03/03/25 19:00 03/04/25 08:37 Vital Signs Vital Signs Date Time Temp Pulse Resp B/P (MAP) Pulse Ox O2 Delivery O2 Flow Rate FiO2 03/04/25 12:00 99.0 78 12 114/64 (81) 94 99.0 03/04/25 05:56 Oxymizer 4.0 03/04/25 05:56 82 82 Labs/Diagnostic Data Labs Test 03/04/25 04:57 03/03/25 17:45 03/03/25 09:09 03/03/25 08:56 Range/Units White Blood Count 12.1 H 4.4-10.8 10^3/uL Red Blood Count 2.55 L 4.5-5.90 10^6/uL Hemoglobin 8.3 L 13.5-17.5 g/dL Hematocrit 24.9 #L 41.0-53.0 % Mean Corpuscular Volume 97.6 80.0-100.0 fL Mean Corpuscular Hemoglobin 32.4 H 28.0-32.0 pg Mean Corpuscular Hemoglobin Concent 33.2 32.0-36.0 g/dL Red Cell Distribution Width 14.4 H 11.8-14.3 % Platelet Count 130 L 140-450 10^3/uL Mean Platelet Volume 9.9 6.9-10.8 fL Neutrophils (%) (Auto) 91.5 H 37.0-80.0 % Lymphocytes (%) (Auto) 2.1 L 10.0-50.0 % Monocytes (%) (Auto) 6.3 0.0-12.0 % Eosinophils (%) (Auto) 0.0 0.0-7.0 % Basophils (%) (Auto) 0.1 0.0-2.0 % Neutrophils # (Auto) 11.1 H 1.6-8.6 10 ^3/uL Lymphocytes # (Auto) 0.3 L 0.4-5.4 10 ^3/uL Monocytes # (Auto) 0.8 0-1.3 10 ^3/uL Eosinophils # (Auto) 0 0-0.8 10 ^3/uL Basophils # (Auto) 0 0-0.2 10 ^3/uL Nucleated Red Blood Cells 0.3 % Sodium Level 137 136-145 mmol/L Potassium Level 5.3 H 3.5-5.1 mmol/L Chloride Level 103 98-107 mmol/L Carbon Dioxide Level 20 20-31 mmol/L Anion Gap 14 5-15 Blood Urea Nitrogen 80 #*H 9-23 mg/dL Creatinine 7.36 H 0.700-1.30 mg/dL Glomerular Filtration Rate Calc 8 >90 mL/min BUN/Creatinine Ratio 10.9 10.0-20.0 Serum Glucose 151 H 74-106 mg/dL Calcium Level 9.4 8.7-10.4 mg/dL Total Bilirubin 0.5 0.2-1.0 mg/dL Aspartate Amino Transferase (AST) 50 H 13-40 U/L Alanine Aminotransferase (ALT) 107 H 7-40 U/L Alkaline Phosphatase 109 46-116 U/L Total Protein 6.6 5.7-8.2 g/dL Albumin 4.0 3.2-4.8 g/dL Random Vancomycin Level 22.4 H 5-10 ug/mL Urine Color Light-yellow Yellow Urine Clarity Clear Clear Urine pH 5.0 5.0-9.0 Urine Specific [place] 1.014 1.001-1.035 Urine Protein Negative Negative Urine Ketones Negative Negative Urine Blood Negative Negative /uL Urine Nitrite Negative Negative Urine Bilirubin Negative Negative Urine Urobilinogen Normal Negative mg/dL Urine Leukocyte Esterase Negative Negative /uL Urine RBC <1 0 - 3 /hpf Urine Microscopic WBC < 1 0-3 /HPF Urine Squamous Epithelial Cells None seen <5 /hpf Urine Bacteria None seen None Seen /hpf Urine Glucose Normal Normal mg/dL Blood Gas Specimen Type Arterial Blood Gas Sample Site Right radial Blood Gas Patient Temperature 37.0 Arterial Blood Date Drawn [id number] Arterial Blood pH 7.379 7.350-7.450 Arterial Blood Partial Pressure CO2 31.8 L 35.0-48.0 mmHg Arterial Blood Partial Pressure O2 184.1 H 83.0-108.0 mmHg Arterial Blood HCO3 18.3 L 21.0-28.0 mmol/L Arterial Blood Oxygen Saturation 99.0 H 94.0-98.0 % Arterial Blood Base Excess -5.8 L -2.0-3.0 mmol/L Arterial Blood Oxyhemoglobin 98.3 H 94.0-98.0 % Arterial Blood Carboxyhemoglobin 0.2 L 0.5-1.5 % Arterial Blood Methemoglobin 0.5 0.0-1.5 % Arterial Blood Deoxyhemoglobin 1.0 0.0-5.0 % Mahesh Test Modified Blood Gas Total Hemoglobin 11.70 L 13.5-17.5 g/dL Blood Gas Liter Flow 30.00 Blood Gas Modality High flow FiO2 % 90.0 POC Glucose 169 H 70-106 mg/dl Test 03/03/25 08:49 03/03/25 08:44 03/03/25 05:45 03/03/25 04:48 Range/Units Troponin I High Sensitivity 31 </=54 ng/L Hepatitis B Surface Antigen Negative Negative Hepatitis B Surface Antibody Negative Negative Hepatitis C Antibody Negative Negative Lactic Acid Level 1.0 0.4-2.0 mmol/L Thyroid Stimulating Hormone (TSH) 1.81 0.55-4.78 uIU/mL Prothrombin Time 12.8 H 9.3-11.8 sec Prothrombin Time INR 1.23 H 0.9-1.15 Activated Partial Thromboplast Time 26.0 24.5-34.5 SEC B-Type Natriuretic Peptide 2265.83 0-100 pg/mL Test 03/03/25 04:13 03/03/25 00:00 Range/Units Reticulocyte Count (auto) 2.18 H 0.5-1.5 % Influenza Type A Antigen Negative Negative Influenza Type B Antigen Negative Negative SARS-CoV-2 Antigen (Rapid) Negative NEGATIVE Microbiology Date/Time Source Procedure Growth Status 03/03/25 08:49 Blood Blood Culture - Preliminary NO GROWTH AFTER 24 HOURS OF INCUBATION. Resulted Assessment [id number] C/O SHORTNESS OF BREATH ESRD ON DIALYSIS SEC TO RENAL FAILURE FOLLOWING CHEMOTHERAPY FOR LUNG CA AFEBRILE VSS ABD SOFT REQUIRING DIALYSIS PROCEED WITH TUNNELLED/TEMPORARY CATH PLACEMENT Plan discussed with: Patient BOBBY HANCOCK MD Mar 04, 2025 12:30
--- NOTE | 2025-03-04 12:47 | DVHINCON2 ---
DATE OF CONSULTATION: 03/04/2025 HISTORY OF PRESENT ILLNESS: This patient is a 69-year-old from [facility] with a chief complaint of worsening shortness of breath and he had this 3-4 days before that and then he was okay and then he had a significant deterioration in his breathing as well. He has a significant medical history of lung cancer. He is status post right lower lobectomy in 2018 and was on chemotherapy. Following that, he developed end-stage renal disease and was on dialysis. He had a right tunnel catheter placed on the right side and then it was removed because his kidney function improved and now his kidney function is not doing well, so I was asked to see him in regard to placement of a dialysis catheter. At this point, no nausea or vomiting. No constipation or diarrhea. No hematemesis or melena. No bleeding per rectum. PAST MEDICAL HISTORY: As indicated above. PHYSICAL EXAMINATION: VITAL SIGNS: Afebrile. Stable signs. HEENT: With no evidence of pallor, cyanosis, or jaundice. NECK: Supple and nontender, with no thyromegaly or lymphadenopathy. CHEST AND LUNGS: Clear. HEART: Within normal limits. ABDOMEN: Soft. NEUROLOGIC: Not assessed. CLINICAL IMPRESSION: End-stage renal disease. PLAN: The plan would be to place a permanent or tunnel catheter and attempt to place it on the left side and if not successful, then go to the right side of the subclavian vein and then there is a possibility of a temporary catheter replacement as well in case the permanent catheter placement is not successful. Benefits and risks have been discussed and a consent obtained. MD GABRIELA Rowe/MARU TID: [id number] RECEIPT: [id number] cc:
[2025-03-04] MEDS ORDERED: MEPERIDINE HCL (25 MG/ML) 1ML VIAL ONE (13:03)
--- NOTE | 2025-03-04 13:27 | DVHOP2 ---
Operative Report [id number] ESRD PLACEMENT OF TUNNELLED DIALYSIS CATH MAC EBL 5 CC NO DRAINS NO COMPLICATIONS STABLE RECOVERY ROOM CXR IN REC ROOM BOBBY HANCOCK MD Mar 04, 2025 13:27
[2025-03-04] MEDS ORDERED: VANCOMYCIN 500mg/100mL 100 ML IV ONE (14:00)
--- NOTE | 2025-03-04 14:11 | DVH ---
XY C ARM FLUOROSCOPY UP TO 60MIN, XY CHEST XRAY 1 VIEW, HISTORY: DIALYSIS CATHETER PLACEMENT TECHNICAL DATA: 2 intraoperative fluoroscopic spot images were obtained . COMPARISON: None FINDINGS/IMPRESSION: C-arm fluoroscopic images were obtained for anatomic localization. The images are of low resolution but demonstrate instrumentation over the chest . Total fluoroscopy time was 9.2 seconds. Please see the operative report for further details.
--- NOTE | 2025-03-04 15:15 | DVHOP ---
DATE OF SURGERY: 03/04/2025 PREOPERATIVE DIAGNOSIS: End-stage renal disease. POSTOPERATIVE DIAGNOSIS: End-stage renal disease. PROCEDURE: Left subclavian tunneled catheter placement. SURGEON: Ismael Stuart MD QUALITY PROCESS AUDITOR: None. ANESTHESIA: Local with IV sedation. ESTIMATED BLOOD LOSS: 5 mL. DRAINS: No drains were used. DESCRIPTION OF PROCEDURE: The patient was prepped and draped in the usual sterile fashion in the Trendelenburg position. Lidocaine was infiltrated in the vicinity in the left infraclavicular location and a percutaneous incision was applied to enter into the subclavian vein. The syringe was detached. The guide was advanced through the needle and into position and checked by fluoroscopy in good position. The needle was withdrawn. The tract was dilated. Introducer sheath assembly was applied over the guidewire and then the tunneled dialysis catheter was then subcutaneously brought up against the introducer sheath assembly from a separate incision that was placed more inferiorly after the lidocaine was infiltrated in the vicinity as well. The cuff was located within the incision and then the trocar along with the needle was removed. The sheath was left in place and the tip of the dialysis catheter was advanced through the sheath, advanced into position into good location and the sheath was withdrawn. With the cuff in good position, the catheter without any kinking and in the right upper atrium and confirmed by fluoroscopy with no complications, both the ports were flushed with normal saline and heparinized saline, good flows were obtained. There were no complications. The wounds were brought together using 3-0 Monocryl suture for the infraclavicular incision as well as the exit site incision. Then, the flange of the catheter was secured in place using a silk suture on both the sites and a Biopatch was applied for the exit site and surgical glue was applied for the infraclavicular incision. Steri-Strips were applied. The patient tolerated the procedure well. He was taken back to the recovery room in stable condition. MD GABRIELA Rowe/PAULO/ALIA TID: [id number] RECEIPT: [id number] cc: Gracie Smith, Dr. Lul Dr.
--- NOTE | 2025-03-04 15:40 | DVHPNRES ---
Progress Note Date Seen: Mar 04, 2025 Resident Creating Document: CURLY MIRAMONTES RESIDENT Medical Necessity Reason Pt with a Central, PICC or Fol: No Subjective Review of Systems Patient seen and examined with the bedside Oxygen requirements decreased and patient was on nasal cannula 2 L/min saturating more than 94%. WBC count decreasing Patient tolerating diet well No acute complaints Objective vital signs Vital Sign Date Time Temp Pulse Resp B/P (MAP) Pulse Ox O2 Delivery O2 Flow Rate FiO2 03/04/25 14:08 52 12 97 03/04/25 13:59 Oxymizer 2.0 03/04/25 13:59 82 82 03/04/25 13:41 109/59 (76) 03/04/25 13:26 98.6 98.6 Total Intake and Output 03/03/25 03/03/25 03/04/25 15:00 23:00 07:00 Intake Total 475 ml 425 ml 400 ml Output Total 500 ml 2050 ml Balance 475 ml -75 ml -1650 ml medications Current Medications Medications Dose Ordered Sig/Peng Route Start Time Stop Time Status Last Admin Dose Admin Nitroglycerin 0.4 mg Q5MINP PRN SL 03/03/25 08:15 Morphine Sulfate 2 mg Q30M PRN IV 03/03/25 08:15 Vancomycin HCl 0 ml @ 0 mls/hr PER PHARMACY IV 03/03/25 08:15 Ceftriaxone Sodium 50 ml @ 100 mls/hr DAILY@09 IV 03/03/25 09:00 03/04/25 09:12 100 MLS/HR Azithromycin 250 ml @ 125 mls/hr DAILY IV 03/03/25 10:00 03/04/25 10:57 125 MLS/HR Pantoprazole Sodium 40 mg DAILY IV 03/03/25 10:00 03/04/25 09:12 40 MG Albuterol 2.5 mg Q8HR NEB 03/03/25 14:00 03/04/25 13:58 2.5 MG Ipratropium [place] 0.5 mg Q8HR NEB 03/03/25 14:00 03/04/25 13:58 0.5 MG Acetylcysteine 200 mg Q8HR NEB 03/03/25 14:00 03/04/25 13:59 200 MG Furosemide 80 mg BIDD IV 03/03/25 18:00 03/04/25 07:37 80 MG Ondansetron HCl 4 mg Q6HPRN PRN IV 03/03/25 19:00 03/04/25 08:37 4 MG Examination Skin - Patients skin is warm and dry. HEENT - normocephalic, atraumatic, moist mucous membranes, no conjunctival pallor, no scleral icterus Neck - full ROM, no LAD, jugular venous pulsation elevated with a positive hepatojugular reflux Pulmonary - B/L breath sounds improved with the decreased rales cardiovascular - regular S1,S2 heard, no added sounds, no murmurs heard. capillary refill normal <3 secs. GI - soft, nontender abdomen. Bowel sounds normoactive Neurological - Patient is A/O X 3 . Bilateral upper extremity strength 5/5, bilateral lower extremity strength 5/5, no facial droop, normal speech, no tremor, no sensory deficiets. laboratory and microbiology Laboratory Tests 03/04/25 04:57 Test 03/04/25 04:57 Range/Units Serum Glucose 151 H 74-106 mg/dL Microbiology Date/Time Source Procedure Growth Status 03/03/25 08:49 Blood Blood Culture - Preliminary NO GROWTH AFTER 24 HOURS OF INCUBATION. Resulted 03/03/25 00:00 Nose MRSA Screen - Final Complete Problem List/Assessment/Plan Problem List/Assessment/Plan Acute hypoxic respiratory failure likely due to pneumonia Multifocal pneumonia likely due to Gram +/-bacteria Sepsis likely due to pneumonia ?Hemoptysis h/o lung cancer status post right lower lobectomy Pulmonary edema likely from acute renal failure PE ruled out ( CT angio at [facility] negative for PE) - IV antibiotics vancomycin plus ceftriaxone plus azithromycin - judicious use of IV fluids since the patient has a acute renal failure - duo nebs q.8 hours with the Mucomyst - sputum cultures pending - blood cultures showed no growth Acute renal failure RODY on CKD likely due to VMN ESRD Hyperkalemia - nephrology consult - IV diuretics - strict I and O - patient underwent tunneled dialysis catheter insertion, dialysis today PUD prophylaxis: Protonix DVT prophylaxis: Started on heparin b.i.d. Goals of care discussed with the patient for over 18 minutes. Full code Critical care time spent: 37 minutes Plan discussed with Dr. Jenkins Plan discussed with: Patient, Spouse (Maria Del Rosario), Other (RN) My Orders My Orders Orders - CURLY MIRAMONTES Procedure Category Date Status Time Ondansetron Hcl PHA 03/03/25 In Process (Zofran) 19:00 Chest Xray 1 View XY 03/04/25 Resulted 07:00 Transfer Orders XFER 03/04/25 Transmitted 07:56 Vancomycin,Random LAB 03/05/25 Verified 04:00 Creatinine LAB 03/05/25 Verified 04:00 Insertion Of Venous XY 03/04/25 Taken Cath 13:37 Date of Service: Mar 04, 2025 Billing Provider: ALBERTA JENKINS MD Common Visit Codes: [id number] INP/OBS CARE(HIGH) CURLY MIRAMONTES RESIDENT Mar 04, 2025 15:39 ALBERTA JENKINS MD Mar 04, 2025 22:53
--- NOTE | 2025-03-04 17:58 | DVHPN2 ---
Progress Note - Dictate Date Seen: Mar 04, 2025 Medical Necessity Reason Pt with a Central, PICC or Fol: No Subjective No new complaints vital signs Vital Sign Date Time Temp Pulse Resp B/P (MAP) Pulse Ox O2 Delivery O2 Flow Rate FiO2 03/04/25 17:40 98.0 78 13 137/68 (91) 98 98.0 03/04/25 13:59 Oxymizer 2.0 03/04/25 13:59 82 82 Total Intake and Output 03/03/25 03/03/25 03/04/25 15:00 23:00 07:00 Intake Total 475 ml 425 ml 400 ml Output Total 500 ml 2050 ml Balance 475 ml -75 ml -1650 ml medications Current Medications Medications Dose Ordered Sig/Peng Route Start Time Stop Time Status Last Admin Dose Admin Nitroglycerin 0.4 mg Q5MINP PRN SL 03/03/25 08:15 Morphine Sulfate 2 mg Q30M PRN IV 03/03/25 08:15 Vancomycin HCl 0 ml @ 0 mls/hr PER PHARMACY IV 03/03/25 08:15 Ceftriaxone Sodium 50 ml @ 100 mls/hr DAILY@09 IV 03/03/25 09:00 03/04/25 09:12 100 MLS/HR Azithromycin 250 ml @ 125 mls/hr DAILY IV 03/03/25 10:00 03/04/25 10:57 125 MLS/HR Pantoprazole Sodium 40 mg DAILY IV 03/03/25 10:00 03/04/25 09:12 40 MG Albuterol 2.5 mg Q8HR NEB 03/03/25 14:00 03/04/25 13:58 2.5 MG Ipratropium [place] 0.5 mg Q8HR NEB 03/03/25 14:00 03/04/25 13:58 0.5 MG Acetylcysteine 200 mg Q8HR NEB 03/03/25 14:00 03/04/25 13:59 200 MG Furosemide 80 mg BIDD IV 03/03/25 18:00 03/04/25 17:39 80 MG Ondansetron HCl 4 mg Q6HPRN PRN IV 03/03/25 19:00 03/04/25 08:37 4 MG Heparin Sodium (Porcine) 5,000 units Q12HR SC 03/04/25 22:00 objective HEENT: No evidence of JVD, no oral ulcers. Pulmonary: Crackles on auscultation bilaterally Cardiovascular S1-S2, no S3 or S4 Abdomen: Bowel sounds positive, soft no rebound tenderness Skin: No rash Neurological: Alert, oriented, no focal weakness laboratory and microbiology Laboratory Tests 03/04/25 04:57 Test 03/04/25 04:57 Range/Units Serum Glucose 151 H 74-106 mg/dL Problem List Assessment: 1. Acute kidney injury, severe ATN, started HD 2. Hyperkalemia improved after HD 3. Pulmonary edema 4. Pneumonia 5. Acidemia 6. Lung cancer 7. Hypertension Plan: Continue HD on MWF Lasix IV 80 mg b.i.d. Tunneled catheter placement, case maker to arrange for chair time Monitor urinary output Antibiotics as per primary team Sodium bicarb p.o. Plan discussed with: Other MEGAN SIMON MD Mar 04, 2025 17:58
[2025-03-04] MEDS: SODIUM CHL 0.9% 1000 ML BAG XX ONE (20:47)
[2025-03-04] MEDS: ALBUMIN 25% 100 ML IV ONE ×2 (21:08→21:37)
[2025-03-05] VITALS (17 sets, daily range): BP systolic 111–147; BP diastolic 59–84; PULSE 61–90; RESP 9–95; TEMP 97.8–99.7; O2SAT 91–100
[2025-03-05] MEDS: VANCOMYCIN 500mg/100mL 100 ML IV ONE (00:03)
[2025-03-05] MEDS: EPOETIN ALFA-EPBX 4,000 UNIT/ML VIAL SC ONE (00:28)
[2025-03-05] MEDS: HEPARIN SODIUM (PORCINE) 5000 UNITS/ML 1ML VIAL SC SCH (00:40)
[2025-03-05 06:03] LABS: Hematocrit 25.5 % (41.0-53.0); Hemoglobin 8.6 g/dL (13.5-17.5); Mean Corpuscular Hemoglobin 32.7 pg (28.0-32.0); Mean Corpuscular Volume 97.2 fL (80.0-100.0); Nucleated Red Blood Cells % 0.4 %
[2025-03-05 06:12] LABS: Anion Gap 13 (5-15); Carbon Dioxide 27 mmol/L (20-31); Chloride 101 mmol/L (98-107); Potassium 4.3 mmol/L (3.5-5.1); Sodium 141 mmol/L (136-145)
[2025-03-05 06:14] LABS: Calcium 9.4 mg/dL (8.7-10.4)
[2025-03-05 06:18] LABS: BUN/Creatinine Ratio 10.0 (10.0-20.0)
[2025-03-05 06:22] LABS: Blood Urea Nitrogen 54 mg/dL (9-23); Glucose 109 mg/dL (74-106)
--- NOTE | 2025-03-05 10:55 | MEDREC ---
[facility] ASP Intervention Section I [facility] ASP Intervention: Deescalate AB based on CS (PLEASE CONSIDER D/C VANCOMYCIN - NARES SCREENING FOR MRSA HAS A HIGH SPECIFICITY AND NEGATIVE PREDICTIVE VALUE FOR RULING OUT MRSA PNEUMONIA) RADHA TOSCANO PHARMACIST Mar 05, 2025 10:55
--- NOTE | 2025-03-05 12:15 | DVHPN2 ---
Progress Note - Dictate Date Seen: Mar 05, 2025 Has the PT tested + for MRSA If YES, has PT been informed?: No Medical Necessity Reason Pt with a Central, PICC or Fol: No Subjective No new complaints vital signs Vital Sign Date Time Temp Pulse Resp B/P (MAP) Pulse Ox O2 Delivery O2 Flow Rate FiO2 03/05/25 08:00 73 95 95 Nasal Cannula* 1 24 03/05/25 05:48 127/76 03/05/25 05:35 98.9 98.9 Total Intake and Output 03/04/25 03/04/25 03/05/25 15:00 23:00 07:00 Intake Total 310 ml 100 ml 500 ml Output Total 800 ml 1350 ml Balance 310 ml -700 ml -850 ml medications Current Medications Medications Dose Ordered Sig/Peng Route Start Time Stop Time Status Last Admin Dose Admin Nitroglycerin 0.4 mg Q5MINP PRN SL 03/03/25 08:15 Morphine Sulfate 2 mg Q30M PRN IV 03/03/25 08:15 Vancomycin HCl 0 ml @ 0 mls/hr PER PHARMACY IV 03/03/25 08:15 Ceftriaxone Sodium 50 ml @ 100 mls/hr DAILY@09 IV 03/03/25 09:00 03/05/25 09:59 100 MLS/HR Azithromycin 250 ml @ 125 mls/hr DAILY IV 03/03/25 10:00 03/05/25 10:00 125 MLS/HR Pantoprazole Sodium 40 mg DAILY IV 03/03/25 10:00 03/05/25 09:59 40 MG Albuterol 2.5 mg Q8HR NEB 03/03/25 14:00 03/05/25 06:44 2.5 MG Ipratropium [place] 0.5 mg Q8HR NEB 03/03/25 14:00 03/05/25 06:43 0.5 MG Acetylcysteine 200 mg Q8HR NEB 03/03/25 14:00 03/05/25 06:47 200 MG Furosemide 80 mg BIDD IV 03/03/25 18:00 03/05/25 05:48 80 MG Ondansetron HCl 4 mg Q6HPRN PRN IV 03/03/25 19:00 03/04/25 08:37 4 MG Heparin Sodium (Porcine) 5,000 units Q12HR SC 03/04/25 22:00 03/05/25 09:59 5,000 UNITS objective HEENT: No evidence of JVD, no oral ulcers. Pulmonary: Crackles on auscultation bilaterally Cardiovascular S1-S2, no S3 or S4 Abdomen: Bowel sounds positive, soft no rebound tenderness Skin: No rash Neurological: Alert, oriented, no focal weakness laboratory and microbiology Laboratory Tests 03/05/25 05:14 Test 03/05/25 05:14 Range/Units Serum Glucose 109 H 74-106 mg/dL Problem List Assessment: 1. Acute kidney injury, severe ATN, started HD 2. Hyperkalemia improved after HD 3. Pulmonary edema 4. Pneumonia 5. Acidemia 6. Lung cancer 7. Hypertension Plan: Continue HD on MWF Lasix IV 80 mg b.i.d. Tunneled catheter placement, residential case manager to arrange for chair time Monitor urinary output Antibiotics as per primary team Sodium bicarb p.o. Plan discussed with: Patient MEGAN SIMON MD Mar 05, 2025 12:15
--- NOTE | 2025-03-05 17:59 | DVHPNRES ---
Progress Note Date Seen: Mar 05, 2025 Resident Creating Document: CAROLYN CHRISTIANSON RESIDENT Has the PT tested + for MRSA If YES, has PT been informed?: No Medical Necessity Reason Pt with a Central, PICC or Fol: No Subjective Review of Systems Patient is a 69-year-old male with who was transferred from [facility] with a chief complaint of worsening shortness of breath. Patient reported he started to have shortness of breath 3-4 days ago and was apparently well until that time. Patient has a significant medical history of lung cancer status post right lower lobectomy in 2018, on chemotherapy, ESRD status post chemotherapy was on dialysis until 6 months ago with the [facility] dialysis. Patient reported of started to have shortness of breath about 3-4 days ago, gradually worsening, orthopnea, associated with a cough and phlegm initially whitish then yellowish to dark brown/red. He denied any fevers, chills, headache, dysuria, chest pain. He denies any diagnosis of COPD, no oxygen use at home. While at [facility] patient underwent CT angio chest which did not show any evidence of pulmonary embolism, patchy airspace disease seen in the right middle lobe, left lower lobe, loculated small right pleural effusion. Patient was initially on nasal cannula with continued hypoxia following which he was put on non-rebreather mask and eventually on high-flow nasal cannula. Patient will be admitted to the hospital for further evaluation Medical history: lung cancer status post right lower lobectomy in 2018, on chemotherapy, ESRD status post chemotherapy was on dialysis until 6 months ago with the [facility] dialysis Surgical history: Right lower lobe lobectomy Social history: Patient lives with the his fiancee and denies any smoking, alcohol, drug use Home medications: Atenolol 25 mg daily, tamsulosin 0.4 mg daily, Krazati ( adagrasib ), lisinopril/hydrochlorothiazide, allopurinol, amlodipine, atorvastatin 03/05/2025: Patient seen at bedside. Patient feels much better is only on 1 L oxygen. Discharge tomorrow after chair time arranged. Objective vital signs Vital Sign Date Time Temp Pulse Resp B/P (MAP) Pulse Ox O2 Delivery O2 Flow Rate FiO2 03/05/25 17:09 127/84 03/05/25 13:00 97.8 61 14 96 97.8 03/05/25 08:00 Nasal Cannula* 1 24 Total Intake and Output 03/04/25 03/04/25 03/05/25 15:00 23:00 07:00 Intake Total 310 ml 100 ml 500 ml Output Total 800 ml 1350 ml Balance 310 ml -700 ml -850 ml medications Current Medications Medications Dose Ordered Sig/Peng Route Start Time Stop Time Status Last Admin Dose Admin Nitroglycerin 0.4 mg Q5MINP PRN SL 03/03/25 08:15 Morphine Sulfate 2 mg Q30M PRN IV 03/03/25 08:15 Vancomycin HCl 0 ml @ 0 mls/hr PER PHARMACY IV 03/03/25 08:15 Ceftriaxone Sodium 50 ml @ 100 mls/hr DAILY@09 IV 03/03/25 09:00 03/05/25 09:59 100 MLS/HR Albuterol 2.5 mg Q8HR [facility] 03/03/25 14:00 03/05/25 06:44 2.5 MG Ipratropium [place] 0.5 mg Q8HR [facility] 03/03/25 14:00 03/05/25 06:43 0.5 MG Acetylcysteine 200 mg Q8HR NEB 03/03/25 14:00 03/05/25 06:47 200 MG Furosemide 80 mg BIDD IV 03/03/25 18:00 03/05/25 17:09 80 MG Ondansetron HCl 4 mg Q6HPRN PRN IV 03/03/25 19:00 03/04/25 08:37 4 MG Heparin Sodium (Porcine) 5,000 units Q12HR SC 03/04/25 22:00 03/05/25 09:59 5,000 UNITS Pantoprazole Sodium 40 mg DAILY@0600 PO 03/06/25 06:00 Azithromycin 500 mg DAILY PO 03/06/25 10:00 03/07/25 10:00 Examination General: Patient alert and oriented in person, place and time. Patient following commands. HEENT: Normocephalic, atraumatic, moist mucous membranes Respiratory/pulmonary: Clear lungs bilaterally, vesicular murmurs present in almost all lung faustin, no associated crackles or wheezes. Cardiovascular: Normal heart sounds S1 and S2 with no associated murmurs Abdomen: Abdomen nondistended, there is no pain to palpation in any of the abdominal quadrants, no palpable masses. Extremities: There is no peripheral edema present at the lower extremities. Peripheral Pulses: 3+ Radial (R). 3+ Radial (L). 3+ Dorsalis pedis (R). 3+ Dorsalis pedis(L) Skin: No rashes or pruritus, there is no sacral edema present at this time. Neurological: Intact cranial nerves with no focal neurologic deficits laboratory and microbiology Laboratory Tests 03/05/25 05:14 Test 03/05/25 05:14 Range/Units Serum Glucose 109 H 74-106 mg/dL Microbiology Date/Time Source Procedure Growth Status 03/04/25 09:10 Sputum Gram Stain - Final Resulted 03/04/25 09:10 Sputum Respiratory Culture - Preliminary No growth Resulted 03/03/25 08:49 Blood Blood Culture - Preliminary NO GROWTH AFTER 48 HOURS OF INCUBATION. Resulted 03/03/25 00:00 Nose MRSA Screen - Final Complete Problem List/Assessment/Plan Problem List/Assessment/Plan Acute hypoxic respiratory failure likely due to pneumonia Multifocal pneumonia likely due to Gram +/-bacteria Sepsis likely due to pneumonia ?Hemoptysis h/o lung cancer status post right lower lobectomy Pulmonary edema likely from acute renal failure PE ruled out ( CT angio at [facility] negative for PE) - IV antibiotics vancomycin plus ceftriaxone plus azithromycin - judicious use of IV fluids since the patient has a acute renal failure - duo nebs q.8 hours with the Mucomyst - sputum cultures pending - blood cultures showed no growth Acute renal failure RODY on CKD likely due to VMN ESRD Hyperkalemia - nephrology consult - IV diuretics - strict I and O - patient underwent tunneled dialysis catheter insertion, dialysis today PUD prophylaxis: Protonix DVT prophylaxis: Started on heparin b.i.d. Goals of care addressed with the patient for more than 27 minutes: Full code status Case discussed with Dr. Ellison , patient and nurse Plan discussed with: Patient Visit Coding STANDARD RES Billing Provider: CAROLYN CHRISTIANSON Date of Service if different f: Mar 05, 2025 Common Visit Codes: [id number] INP/OBS CARE(HIGH) CAROLYN CHRISTIANSON Mar 05, 2025 17:59
[2025-03-06] VITALS (11 sets, daily range): BP systolic 106–144; BP diastolic 68–77; PULSE 61–79; RESP 17–100; TEMP 97.6–98.4; O2SAT 95–100
[2025-03-06] MEDS: PANTOPRAZOLE 40 MG TAB PO SCH (05:26)
[2025-03-06 06:33] LABS: Potassium 3.8 mmol/L (3.5-5.1); Sodium 137 mmol/L (136-145)
[2025-03-06 06:34] LABS: Anion Gap 13 (5-15); Carbon Dioxide 27 mmol/L (20-31); Hematocrit 28.2 % (41.0-53.0); Hemoglobin 9.6 g/dL (13.5-17.5); Mean Corpuscular Hemoglobin 32.5 pg (28.0-32.0); Mean Corpuscular Volume 95.9 fL (80.0-100.0); Nucleated Red Blood Cells % 0.2 %
[2025-03-06 06:35] LABS: Calcium 9.3 mg/dL (8.7-10.4)
[2025-03-06 06:39] LABS: Glucose 102 mg/dL (74-106)
[2025-03-06 06:40] LABS: BUN/Creatinine Ratio 11.4 (10.0-20.0)
[2025-03-06 06:42] LABS: Blood Urea Nitrogen 63 mg/dL (9-23); Chloride 97 mmol/L (98-107)
[2025-03-06] MEDS: AZITHROMYCIN 250 MG TAB PO SCH (11:10)
--- NOTE | 2025-03-06 12:13 | DVHPN2 ---
Progress Note - Dictate Date Seen: Mar 06, 2025 Has the PT tested + for MRSA If YES, has PT been informed?: No Medical Necessity Reason Pt with a Central, PICC or Fol: No Subjective No new complaints vital signs Vital Sign Date Time Temp Pulse Resp B/P (MAP) Pulse Ox O2 Delivery O2 Flow Rate FiO2 03/06/25 08:43 97.6 72 19 111/68 (82) 100 97.6 03/06/25 06:13 Nasal Cannula 1.0 03/06/25 06:13 24 Total Intake and Output 03/05/25 03/05/25 03/06/25 14:59 22:59 06:59 Intake Total 1120 ml 600 ml Output Total 800 ml Balance 320 ml 600 ml medications Current Medications Medications Dose Ordered Sig/Peng Route Start Time Stop Time Status Last Admin Dose Admin Nitroglycerin 0.4 mg Q5MINP PRN SL 03/03/25 08:15 Morphine Sulfate 2 mg Q30M PRN IV 03/03/25 08:15 Vancomycin HCl 0 ml @ 0 mls/hr PER PHARMACY IV 03/03/25 08:15 Ceftriaxone Sodium 50 ml @ 100 mls/hr DAILY@09 IV 03/03/25 09:00 03/06/25 09:16 100 MLS/HR Albuterol 2.5 mg Q8HR NEB 03/03/25 14:00 03/06/25 06:13 2.5 MG Ipratropium [place] 0.5 mg Q8HR NEB 03/03/25 14:00 03/06/25 06:12 0.5 MG Acetylcysteine 200 mg Q8HR NEB 03/03/25 14:00 03/06/25 06:13 200 MG Furosemide 80 mg BIDD IV 03/03/25 18:00 03/06/25 05:27 80 MG Ondansetron HCl 4 mg Q6HPRN PRN IV 03/03/25 19:00 03/04/25 08:37 4 MG Heparin Sodium (Porcine) 5,000 units Q12HR SC 03/04/25 22:00 03/05/25 21:48 5,000 UNITS Pantoprazole Sodium 40 mg DAILY@0600 PO 03/06/25 06:00 03/06/25 05:26 40 MG Azithromycin 500 mg DAILY PO 03/06/25 10:00 03/07/25 10:00 03/06/25 11:10 500 MG objective HEENT: No evidence of JVD, no oral ulcers. Pulmonary: Crackles on auscultation bilaterally Cardiovascular S1-S2, no S3 or S4 Abdomen: Bowel sounds positive, soft no rebound tenderness Skin: No rash Neurological: Alert, oriented, no focal weakness laboratory and microbiology Laboratory Tests 03/06/25 05:52 Test 03/06/25 05:52 Range/Units Serum Glucose 102 74-106 mg/dL Problem List Assessment: 1. Acute kidney injury, severe ATN, started HD 2. Hyperkalemia improved after HD 3. Pulmonary edema 4. Pneumonia 5. Acidemia 6. Lung cancer 7. Hypertension Plan: Continue HD on MWF, patient has cheir time scheduled to continue HD at [facility] Tunneled catheter placed Monitor urinary output Antibiotics as per primary team Sodium bicarb p.o. DC home after HD today Plan discussed with: Patient MEGAN SIMON MD Mar 06, 2025 12:13
[2025-03-06] MEDS ORDERED: SODIUM CHL 0.9% 1000 ML BAG XX ONE (12:30)
--- NOTE | 2025-03-06 14:29 | DVHPN2 ---
Progress Note Date Seen: Mar 06, 2025 Has the PT tested + for MRSA If YES, has PT been informed?: No Medical Necessity Reason Pt with a Central, PICC or Fol: No Objective vital signs Vital Sign Date Time Temp Pulse Resp B/P (MAP) Pulse Ox O2 Delivery O2 Flow Rate FiO2 03/06/25 13:52 72 18 100 03/06/25 13:42 Room Air* 0 21 03/06/25 12:32 98.4 123/75 (91) 98.4 Total Intake and Output 03/05/25 03/05/25 03/06/25 15:00 23:00 07:00 Intake Total 1120 ml 600 ml Output Total 800 ml Balance 320 ml 600 ml medications Current Medications Medications Dose Ordered Sig/Peng Route Start Time Stop Time Status Last Admin Dose Admin Nitroglycerin 0.4 mg Q5MINP PRN SL 03/03/25 08:15 Morphine Sulfate 2 mg Q30M PRN IV 03/03/25 08:15 Vancomycin HCl 0 ml @ 0 mls/hr PER PHARMACY IV 03/03/25 08:15 Ceftriaxone Sodium 50 ml @ 100 mls/hr DAILY@09 IV 03/03/25 09:00 03/06/25 09:16 100 MLS/HR Albuterol 2.5 mg Q8HR NEB 03/03/25 14:00 03/06/25 13:42 2.5 MG Ipratropium [place] 0.5 mg Q8HR NEB 03/03/25 14:00 03/06/25 13:42 0.5 MG Acetylcysteine 200 mg Q8HR NEB 03/03/25 14:00 03/06/25 13:42 200 MG Furosemide 80 mg BIDD IV 03/03/25 18:00 03/06/25 05:27 80 MG Ondansetron HCl 4 mg Q6HPRN PRN IV 03/03/25 19:00 03/04/25 08:37 4 MG Heparin Sodium (Porcine) 5,000 units Q12HR SC 03/04/25 22:00 03/05/25 21:48 5,000 UNITS Pantoprazole Sodium 40 mg DAILY@0600 PO 03/06/25 06:00 03/06/25 05:26 40 MG Azithromycin 500 mg DAILY PO 03/06/25 10:00 03/07/25 10:00 03/06/25 11:10 500 MG laboratory and microbiology Laboratory Tests 03/06/25 05:52 Test 03/06/25 05:52 Range/Units Serum Glucose 102 74-106 mg/dL Microbiology Date/Time Source Procedure Growth Status 03/04/25 09:10 Sputum Gram Stain - Final Resulted 03/04/25 09:10 Sputum Respiratory Culture - Preliminary Resulted 03/03/25 08:49 Blood Blood Culture - Preliminary NO GROWTH AFTER 72 HOURS OF INCUBATION. Resulted 03/03/25 00:00 Nose MRSA Screen - Final Complete Problem List/Assessment/Plan Problem List/Assessment/Plan AFEBRILE VSS LEFT SUBCLAVIAN DIALYSIS CATH IN PLACE BEING DIALYZED NO COMPLICATIONS Plan discussed with: Patient BOBBY HANCOCK MD Mar 06, 2025 14:29
[2025-03-06] MEDS ORDERED: LEVO750T40 PO (16:06)
[2025-03-06] MEDS ORDERED: FURO40TA4 PO (16:06)
--- NOTE | 2025-03-06 17:37 | DVHDSRES ---
Discharge Summary Date of Admission Resident Creating Document: CAROLYN CHRISTIANSON RESIDENT Mar 03, 2025 at 08:14 Date of Discharge: Mar 06, 2025 Admitting Diagnosis Acute hypoxic respiratory failure likely due to pneumonia Labs/Diagnostic Data: Laboratory Results Test 03/06/25 05:52 03/05/25 05:14 03/04/25 04:57 03/03/25 17:45 White Blood Count 10.4 10^3/uL (4.4-10.8) Red Blood Count 2.94 10^6/uL (4.5-5.90) Hemoglobin 9.6 g/dL (13.5-17.5) Hematocrit 28.2 % (41.0-53.0) Mean Corpuscular Volume 95.9 fL (80.0-100.0) Mean Corpuscular Hemoglobin 32.5 pg (28.0-32.0) Mean Corpuscular Hemoglobin Concent 33.9 g/dL (32.0-36.0) Red Cell Distribution Width 13.9 % (11.8-14.3) Platelet Count 133 10^3/uL (140-450) Mean Platelet Volume 10.0 fL (6.9-10.8) Neutrophils (%) (Auto) 80.0 % (37.0-80.0) Lymphocytes (%) (Auto) 8.1 % (10.0-50.0) Monocytes (%) (Auto) 11.7 % (0.0-12.0) Eosinophils (%) (Auto) 0.1 % (0.0-7.0) Basophils (%) (Auto) 0.1 % (0.0-2.0) Neutrophils # (Auto) 8.4 10 ^3/uL (1.6-8.6) Lymphocytes # (Auto) 0.9 10 ^3/uL (0.4-5.4) Monocytes # (Auto) 1.2 10 ^3/uL (0-1.3) Eosinophils # (Auto) 0 10 ^3/uL (0-0.8) Basophils # (Auto) 0 10 ^3/uL (0-0.2) Nucleated Red Blood Cells 0.2 % Sodium Level 137 mmol/L (136-145) Potassium Level 3.8 mmol/L (3.5-5.1) Chloride Level 97 mmol/L (98-107) Carbon Dioxide Level 27 mmol/L (20-31) Anion Gap 13 (5-15) Blood Urea Nitrogen 63 mg/dL (9-23) Creatinine 5.55 mg/dL (0.700-1.30) Glomerular Filtration Rate Calc 11 mL/min (>90) BUN/Creatinine Ratio 11.4 (10.0-20.0) Serum Glucose 102 mg/dL (74-106) Calcium Level 9.3 mg/dL (8.7-10.4) Random Vancomycin Level 16.0 ug/mL (5-10) Hemoglobin A1c 5.0 % A1C (<5.7) Total Bilirubin 0.5 mg/dL (0.2-1.0) Aspartate Amino Transferase (AST) 50 U/L (13-40) Alanine Aminotransferase (ALT) 107 U/L (7-40) Alkaline Phosphatase 109 U/L (46-116) Total Protein 6.6 g/dL (5.7-8.2) Albumin 4.0 g/dL (3.2-4.8) Urine Color Light-yellow (Yellow) Urine Clarity Clear (Clear) Urine pH 5.0 (5.0-9.0) Urine Specific [place] 1.014 (1.001-1.035) Urine Protein Negative (Negative) Urine Ketones Negative (Negative) Urine Blood Negative /uL (Negative) Urine Nitrite Negative (Negative) Urine Bilirubin Negative (Negative) Urine Urobilinogen Normal mg/dL (Negative) Urine Leukocyte Esterase Negative /uL (Negative) Urine RBC <1 /hpf (0 - 3) Urine Microscopic WBC < 1 /HPF (0-3) Urine Squamous Epithelial Cells None seen /hpf (<5) Urine Bacteria None seen /hpf (None Seen) Urine Glucose Normal mg/dL (Normal) Test 03/03/25 09:09 03/03/25 08:56 03/03/25 08:49 03/03/25 08:44 Blood Gas Specimen Type Arterial Blood Gas Sample Site Right radial Blood Gas Patient Temperature 37.0 Arterial Blood Date Drawn [id number] Arterial Blood pH 7.379 (7.350-7.450) Arterial Blood Partial Pressure CO2 31.8 mmHg (35.0-48.0) Arterial Blood Partial Pressure O2 184.1 mmHg (83.0-108.0) Arterial Blood HCO3 18.3 mmol/L (21.0-28.0) Arterial Blood Oxygen Saturation 99.0 % (94.0-98.0) Arterial Blood Base Excess -5.8 mmol/L (-2.0-3.0) Arterial Blood Oxyhemoglobin 98.3 % (94.0-98.0) Arterial Blood Carboxyhemoglobin 0.2 % (0.5-1.5) Arterial Blood Methemoglobin 0.5 % (0.0-1.5) Arterial Blood Deoxyhemoglobin 1.0 % (0.0-5.0) Mahesh Test Modified Blood Gas Total Hemoglobin 11.70 g/dL (13.5-17.5) Blood Gas Liter Flow 30.00 Blood Gas Modality High flow FiO2 % 90.0 POC Glucose 169 mg/dl (70-106) Troponin I High Sensitivity 31 ng/L (</=54) Hepatitis B Surface Antigen Negative (Negative) Hepatitis B Surface Antibody Negative (Negative) Hepatitis C Antibody Negative (Negative) Lactic Acid Level 1.0 mmol/L (0.4-2.0) Test 03/03/25 05:45 03/03/25 04:48 03/03/25 04:13 03/03/25 00:00 Thyroid Stimulating Hormone (TSH) 1.81 uIU/mL (0.55-4.78) Prothrombin Time 12.8 sec (9.3-11.8) Prothrombin Time INR 1.23 (0.9-1.15) Activated Partial Thromboplast Time 26.0 SEC (24.5-34.5) B-Type Natriuretic Peptide 2265.83 pg/mL (0-100) Reticulocyte Count (auto) 2.18 % (0.5-1.5) Influenza Type A Antigen Negative (Negative) Influenza Type B Antigen Negative (Negative) SARS-CoV-2 Antigen (Rapid) Negative (NEGATIVE) Other Laboratory Tests 03/06/25 05:52 Brief Hx & Hospital Course: Patient is a 69-year-old male with who was transferred from [facility] with a chief complaint of worsening shortness of breath. Patient reported he started to have shortness of breath 3-4 days ago and was apparently well until that time. Patient has a significant medical history of lung cancer status post right lower lobectomy in 2018, on chemotherapy, ESRD status post chemotherapy was on dialysis until 6 months ago with the [facility] dialysis. Patient reported of started to have shortness of breath about 3-4 days ago, gradually worsening, orthopnea, associated with a cough and phlegm initially whitish then yellowish to dark brown/red. He denied any fevers, chills, headache, dysuria, chest pain. He denies any diagnosis of COPD, no oxygen use at home. While at [facility] patient underwent CT angio chest which did not show any evidence of pulmonary embolism, patchy airspace disease seen in the right middle lobe, left lower lobe, loculated small right pleural effusion. Patient was initially on nasal cannula with continued hypoxia following which he was put on non-rebreather mask and eventually on high-flow nasal cannula. Patient will be admitted to the hospital for further evaluation Medical history: lung cancer status post right lower lobectomy in 2018, on chemotherapy, ESRD status post chemotherapy was on dialysis until 6 months ago with the [facility] dialysis Surgical history: Right lower lobe lobectomy Social history: Patient lives with the his fiancee and denies any smoking, alcohol, drug use Home medications: Atenolol 25 mg daily, tamsulosin 0.4 mg daily, Krazati ( adagrasib ), lisinopril/hydrochlorothiazide, allopurinol, amlodipine, atorvastatin Brief hospital course: patient came to the hospital with chief complaints of shortness of breath. Patient had acute hypoxic respiratory failure likely due to pneumonia, pneumonia likely due to Gram-positive / Gram-negative bacteria. And sepsis likely due to pneumonia. Patient has history of lung cancer status post right lobectomy, pulmonary edema likely due to acute renal failure. PE was ruled out. Patient was started on IV antibiotics with vancomycin and ceftriaxone plus azithromycin. patient was given IV fluids. Med nebs were started with Mucomyst, sputum cultures showed no growth, blood cultures also showed no growth. Patient has acute renal failure, RODY on CKD likely due to be [facility] ESRD and hyperkalemia for which Nephrology was consulted and patient was given IV diuretics and monitored strict I&Os, patient underwent tunneled dialysis catheter insertion for dialysis. Chair time was arranged with [facility] for Tuesday dialysis. patient initially was on Oxymizer now is at room air and saturating well. Patient is stable for discharge. Patient understands his discharge plan and has agreed. Patient is to follow-up with discharge Clinic and PCP in 1 week. Patient is to follow up with [facility] outpatient. General: Patient alert and oriented in person, place and time. Patient following commands. HEENT: Normocephalic, atraumatic, moist mucous membranes Respiratory/pulmonary: Clear lungs bilaterally, vesicular murmurs present in almost all lung faustin, no associated crackles or wheezes. Cardiovascular: Normal heart sounds S1 and S2 with no associated murmurs Abdomen: Abdomen nondistended, there is no pain to palpation in any of the abdominal quadrants, no palpable masses. Extremities: There is no peripheral edema present at the lower extremities. Peripheral Pulses: 3+ Radial (R). 3+ Radial (L). 3+ Dorsalis pedis (R). 3+ Dorsalis pedis(L) Skin: No rashes or pruritus, there is no sacral edema present at this time. Neurological: Intact cranial nerves with no focal neurologic deficits Patient is to take Furosemide 40 mg b.i.d. Levofloxacin 750 mg p.o. daily Operations or Procedures ORDERING PHYSICIAN: YONATHAN ANN MD PROCEDURE(s): CXRP - CHEST PORTABLE REASON: SOB ORDER NUMBER(s): [id number], ACCESSION NUMBER(s): [id number] CHEST RADIOGRAPH Indication: SOB Technique: Single frontal view of the chest was obtained Comparison: XR CHEST 1 VIEW on DOS: 03/02/25, XR CHEST 1 VIEW on DOS: 09/13/23, XR CHEST 1 VIEW on DOS: 03/07/23 IMPRESSION: Heart is enlarged. Bilateral airspace opacities in the left lung base, right middle and lower lung. Small right pleural effusion. No pneumothorax. ATED BY: RHETT SANTIAGO MD DICTATED DATE/TIME: 03/03/25 0534 ORDERING PHYSICIAN: SIMIN MICHELLE MD PROCEDURE(s): KIDUS - KIDNEY REASON: RODY ORDER NUMBER(s): [id number], ACCESSION NUMBER(s): [id number] INDICATION: RODY TECHNIQUE: Multiple real-time sonographic images of the kidneys and bladder were obtained. COMPARISON: None FINDINGS: The right kidney measures 9.7 cm in length, which is normal in size. There is normal echogenicity of the right kidney. No hydronephrosis. The left kidney measures 8.5 cm in length, which is normal in size. There is normal echogenicity of the left kidney. No hydronephrosis. No large intraluminal masses are seen in the bladder. Prior to voiding the bladder volume measures volume 1306 cc. Wall of the bladder measures 2.1 mm Postvoid bladder volume not received Prostate measures 5.93 by 3.04 x 5.23 cm. Prostatic volume is 49.41 mL. IMPRESSION: 1. Normal sonographic appearance of the kidneys. No hydronephrosis. 2. Postvoid bladder volume not received 3. Prostate volume 49.41 mL ATED BY: RUTHIE CHATTERJEE Jr., DO DICTATED DATE/TIME: 03/03/25 1440 ORDERING PHYSICIAN: CURLY MIRAMONTES PROCEDURE(s): CXR1 - CHEST XRAY 1 VIEW REASON: SOB ORDER NUMBER(s): [id number], ACCESSION NUMBER(s): [id number] EXAM: XY CHEST XRAY 1 VIEW HISTORY: SOB COMPARISON: XY CHEST PORTABLE on DOS: 03/03/25, XR CHEST 1 VIEW on DOS: 03/02/25, XR CHEST 1 VIEW on DOS: 09/13/23, XR CHEST 1 VIEW on DOS: 03/07/23, XR CHEST 1 VIEW on DOS: 03/07/23. For reasons unknown, CT scan of the chest dated 03/03/2025 was not made available on the PACS system for viewing. TECHNIQUE: Portable AP view of the chest was performed. FINDINGS: There are patchy opacities in the bilateral lung bases, improved on both sides compared with chest x-ray performed on 03/03/2025. There may be a small right pleural effusion. No pneumothorax. The heart is not enlarged. There are Multiple old right rib fractures. IMPRESSION: Improved bibasilar pneumonia. ATED BY: AUGUST ESCUDERO MD DICTATED DATE/TIME: 03/04/25 0827 ORDERING PHYSICIAN: BOBBY HANCOCK MD PROCEDURE(s): CARM1 - C ARM FLUOROSCOPY UP TO 60MIN REASON: DIALYSIS CATHETER PLACEMENT ORDER NUMBER(s): [id number], ACCESSION NUMBER(s): [id number] XY C ARM FLUOROSCOPY UP TO 60MIN, XY CHEST XRAY 1 VIEW, HISTORY: DIALYSIS CATHETER PLACEMENT TECHNICAL DATA: 2 intraoperative fluoroscopic spot images were obtained . COMPARISON: None FINDINGS/IMPRESSION: C-arm fluoroscopic images were obtained for anatomic localization. The images are of low resolution but demonstrate instrumentation over the chest . Total fluoroscopy time was 9.2 seconds. Please see the operative report for further details. ATED BY: UMAIR LÓPEZ MD DICTATED DATE/TIME: 03/04/25 9618 Condition at Discharge: Stable Final Diagnosis/Problems List Acute hypoxic respiratory failure likely due to pneumonia Multifocal pneumonia likely due to Gram +/-bacteria Sepsis likely due to pneumonia h/o lung cancer status post right lower lobectomy Pulmonary edema likely from acute renal failure PE ruled out ( CT angio at [facility] negative for PE) Acute renal failure RODY on CKD likely due to [facility] ESRD Hyperkalemia Discharge Disposition: Home Discharge Instruct/Medications Diet: Renal Activity: No Restrictions, As Tolerated Follow Up/Referral: Follow up with the PCP in one week F/u in the d/c clinic in one week For dialysis: [facility] [address] [place] Chair time is scheduled for Tuesday- and Saturdays at 0930. Medications: as per [facility] Scheduled Furosemide (Furosemide), 40 MG PO BID Levofloxacin Hemihydrate (Levofloxacin), 750 MG PO DAILY Discharge Statement: "Patient was advised to return to the ER or call 911 if any headaches, dizziness, shortness of breath, chest pain, abdominal pain, bleeding, fevers, or worsening of medical condition. Patient was counseled about treatment plan, medications, possible side effects, patientverbalized understanding. All questions were answered to the best of my ability. This discharge took greater then 30 minutes in planning, reviewing documentation, counseling the patient, and discussing with other team members." ASSESSMENT ASSESSMENT Assessment Acute hypoxic respiratory failure likely due to pneumonia Multifocal pneumonia likely due to Gram +/-bacteria Sepsis likely due to pneumonia h/o lung cancer status post right lower lobectomy Pulmonary edema likely from acute renal failure RODY on CKD likely due to [facility] ESRD Visit Coding STANDARD RES Billing Provider: CAROLYN CHRISTIANSON Date of Service if different f: Mar 06, 2025 Common Visit Codes: [id number] INP/OBS CARE(HIGH) CAROLYN CHRISTIANSON RESIDENT Mar 06, 2025 17:37
[2025-03-06] MEDS ORDERED: EPOETIN ALFA-EPBX 10,000 UNIT/1ML VIAL SC ONE (21:00)
== END 2025-03-06 18:50 | disposition home or self-care (01) | DRG 871 ==
LOC: ER 04:04 → OVERFLOW 08:14 → DOU 13:07 → EAST 03-05 05:37 → TELE-EAST 03-05 08:29
PROVIDERS: ADMIT Student in an Organized Health Care Education/Training Program; ATTEND Student in an Organized Health Care Education/Training Program
PROC: 5A0935A Assistance with Respiratory Ventilation, Less than 24 Consecutive Hours, High Flow/Velocity Cannula (ICD-10-PCS; 2025-03-03)
PROC: 5A1D70Z Performance of Urinary Filtration, Intermittent, Less than 6 Hours Per Day (ICD-10-PCS; 2025-03-04)
PROC: 05H633Z Insertion of Infusion Device into Left Subclavian Vein, Percutaneous Approach (ICD-10-PCS; 2025-03-04)
PROC: B5171ZA Fluoroscopy of Left Subclavian Vein using Low Osmolar Contrast, Guidance (ICD-10-PCS; 2025-03-04)
PROC: 0JH63XZ Insertion of Tunneled Vascular Access Device into Chest Subcutaneous Tissue and Fascia, Percutaneous Approach (ICD-10-PCS; principal; 2025-03-04 12:26)
PROC: 5A1D70Z Performance of Urinary Filtration, Intermittent, Less than 6 Hours Per Day (ICD-10-PCS; 2025-03-06)
DX: A41.59 Other Gram-negative sepsis (principal); J15.69 Pneumonia due to other Gram-negative bacteria; J15.9 Unspecified bacterial pneumonia; N17.0 Acute kidney failure with tubular necrosis; J96.01 Acute respiratory failure with hypoxia; N18.6 End stage renal disease; E87.20 Acidosis, unspecified; I12.0 Hypertensive chronic kidney disease with stage 5 chronic kidney disease or end stage renal disease; Z99.2 Dependence on renal dialysis; J81.1 Chronic pulmonary edema; Z20.822 Contact with and (suspected) exposure to COVID-19; E87.5 Hyperkalemia; E87.70 Fluid overload, unspecified; N40.0 Benign prostatic hyperplasia without lower urinary tract symptoms; Z85.118 Personal history of other malignant neoplasm of bronchus and lung; Z92.21 Personal history of antineoplastic chemotherapy; Z90.2 Acquired absence of lung [part of]; Z79.899 Other long term (current) drug therapy
CPT/HCPCS: 36415; 36600; 71045; 76000; 76775; 80048; 80053; 80202; 81001; 82805; 82962; 83036; 83605; 83880; 84132; 84443; 84484; 85025; 85045; 85610; 85730; 86706; 86803; 86850; 86900; 86901; 87040; 87070; 87081; 87205; 87340; 87426; 87804; 90935; 93005; 93306; 94640; 94667; 94668; 96365; 96375; 97163; 99291; G0378; J1642; J1815; J2250; J2405; J2470; J2704; J3490; P9047